=== PATIENT | male | born 1975 | race Caucasian/White ===

== ENCOUNTER 2024-03-19 01:11 | Day surgery (SDC) | payer BC, SELFPAY ==
[2024-03-11 09:50] VITALS: BMI 35.9
--- NOTE | 2024-03-11 10:15 | PC.NURSE ---
pat call done and prep instructions emailed per pt request.
[2024-03-19 11:23] VITALS: BP 142/84; PULSE 85; RESP 17; TEMP 36.2; O2SAT 100; BMI 35.2
[2024-03-19] MEDS: LACTATED RINGERS 1,000 ML 150 ML IV CONT (11:36)
--- NOTE | 2024-03-19 12:04 | WPDANESEPPF ---
Anes - Initial Pre Proc Eval Procedure: Operation Date: 03/19/24 12:30 Proposed Procedures p Esophagogastroduodenoscopy&Screen Colon - Paco Cortés MD Date/Time: 03/19/24 12:04 Surgeon: Paco Cortés MD Pre Op Diagnosis: screening colon, epigastric pain Patient Data Age: 48 Gender: M Height: 1.7 m Weight: 101.9 kg Last Vital Signs Temp 36.2 C L 03/19/24 11:23 Pulse 85 03/19/24 11:23 Resp 17 03/19/24 11:23 BP 142/84 H 03/19/24 11:23 Pulse Ox 100 03/19/24 11:23 O2 Del Method Room Air 03/19/24 11:23 Allergies Allergy/AdvReac Type Severity Reaction Status Date / Time Sulfa (Sulfonamide Allergy Mild Hives Verified 03/19/24 11:22 Antibiotics) Home Medications Medication Instructions Recorded Confirmed Type atenolol 50 mg tablet 50 mg PO DAILY 02/22/24 03/19/24 History pantoprazole 40 mg tablet,delayed 40 mg PO QAM 02/22/24 03/19/24 History release Patient hx anesthesia problems: none Family hx anesthesia problems: none Results Review: All pre-operative results and documents have been reviewed as part of the pre-operative evaluation. [facility] Past Medical History Medical History (Updated 03/19/24 @ 12:04 by Stone Javier CRNA) Encounter for screening colonoscopy Epigastric pain Hypertension Surgical History Surgical History History of bilateral carpal tunnel release Family History Family History Grandparent Carcinoma of colon Other Hypertension Social History Social History Smoking status: Never smoker Alcohol intake: current Alcohol use details: 1-4 week Substance use: never Substance use type: does not use Living arrangements: with family Spiritual care concerns: No Anes - Eval Final PreProcedure Day of Procedure 03/19/24 12:04 Patient weight: obese Heart: regular rate and rhythm Lungs: clear to auscultation Airway: Mallampati scale class II Neurological: alert and oriented Last oral intake: >/= 8 hours ASA classification: III Emergent: no Anesthetic plan: proceed Anesthesia type and monitoring: general GIVS Results Review: All pre-operative results and documents have been reviewed as part of the pre-operative evaluation. Informed Consent: The patient's anesthetic plan and its attendant risks and benefits were discussed with the patient/family/POA. Questions were solicited and answers provided to the satisfaction of the patient/family/POA.
--- NOTE | 2024-03-19 12:05 | WPDHPUPDATE1 ---
History and Physical Update Update Date/Time: 03/19/24 12:05 History and Physical has been reviewed, including an updated exam of the patient. There are NO changes in the patient's condition. Risks, benefits, and alternatives have been discussed and questions answered. Patient agrees to proceed with procedure.
--- NOTE | 2024-03-19 12:22 | SUR.OPER ---
EGD end 1222 Colonoscopy start 1227
[2024-03-19 12:39] VITALS: BP 107/58; PULSE 76; RESP 24; O2SAT 95
[2024-03-19 12:49] VITALS: BP 110/80; PULSE 75; RESP 16; O2SAT 95
[2024-03-19 12:59] VITALS: BP 117/78; PULSE 74; RESP 20; O2SAT 97
== END 2024-03-19 13:15 | disposition home or self-care (01) ==
PROVIDERS: PCP Physician Assistant; Referring Provider Nurse Practitioner Family; Visit Provider Internal Medicine Gastroenterology
PROC: 0DJ08ZZ Inspection of Upper Intestinal Tract, Via Natural or Artificial Opening Endoscopic (ICD-10-PCS; CPT 43235; principal; 2024-03-19 12:30)
DX: Z12.11 Encounter for screening for malignant neoplasm of colon (principal); D12.2 Benign neoplasm of ascending colon; K62.1 Rectal polyp; K29.50 Unspecified chronic gastritis without bleeding; I10 Essential (primary) hypertension; E66.9 Obesity, unspecified; Z68.35 Body mass index [BMI] 35.0-35.9, adult
CPT/HCPCS: 45385; 43239; 88305; J2704; J7120

== ENCOUNTER 2024-04-28 08:54 | Outpatient (CLI) | payer BC, SELFPAY ==
--- NOTE | ~2024-04-28 | US_ITS ---
COMPLETE ABDOMINAL ULTRASOUND Ordering provider: BLANQUITA Delgado History: . R10.13 - Epigastric pain . Comparison: None. FINDINGS: LIVER: Normal size and increased echotexture. Measures 16.2 cm. No focal hepatic lesions or perihepat ic fluid collections are identified. Normal flow of the portal vein. Portal vein measures 0.9 cm. GALLBLADDER: Cholelithiasis No evidence for sludge, gallbladder wall thickening or pericholecystic fl uid collections. Gallbladder wall measures 1.3 mm. A negative sonographic Mckeon's sign was noted. BILIARY DUCTS: No evidence for intra or extrahepatic biliary dilation. Common bile duct measures 2.7 mm in diameter which is within normal limits. PANCREAS: Partially visualized. SPLEEN: Normal size, echotexture and contour and measures 12.7X 4.5X 5 cm in length. KIDNEYS: Right measures 11.1X 5.4X 6 cm in length and the left 11.1X 5.5X 5.4 cm in length. There is no evidence for hydronephrosis, solid renal mass, renal calculi or perinephric fluid collections. No renal cysts. Bladder wall measures 1.7 mm. UPPER ABDOMINAL AORTA: Normal in caliber. Proximal measures 2.6 cm. Made measures 1.9 cm. Distal measures 1.5 cm. IVC: Patent. FREE FLUID: None. IMPRESSION: Cholelithiasis. Fat infiltration of the liver. Otherwise, normal Complete ultrasound of the abdomen. Reviewed, dictated and finalized at location A. O STATION MANAGER IMPRESSION: Cholelithiasis. Fat infiltration of the liver. Otherwise, normal Complete ultra sound of the abdomen.
--- OUTSIDE RECORDS SUMMARY | 2024-05-05 23:28 | XMS_ITS | Continuity of Care Document ---
Author [facility] Address [address] [place] [address] Care Team Providers Care Sifting Operator Name Role Phone LYLA MORRISON Primary Care Provider [phone] Assessment No assessment recorded. Plan of Treatment Reminders Order Date Submit Date Provider Last Modified By Organization Details Last Modified Time Details Appointments None recorded. Lab None recorded. Referral None recorded. Procedures None recorded. Surgeries None recorded. Imaging None recorded. Medication Orders pantoprazol e 40 mg tablet,nola yed release 2023 024 [facility] [address] [place], [address], 11:57:31 Patient TargetsNo targets recorded. Patient Instructions Encounter Date Encounter Id Patient Instructions Last Modified By Organization Details Last Modified Time 04/07/2024 [id number] A healthy lifestyle: care instructions [email or web address] Not available 04/07/2024 11:57:50 Reason for Referral None Reported. Results Created Date Observation Date Name Description Value Unit Range Abnormal Flag Note LastModifiedBy Organization Detail LastModifiedTime 04/28/20 24 04/28/2024 US, abdom en, compl ete No observ ation record ed. [address], [place], [address], 04/28/2024 11:43:28 Result Notes None recorded. Medical Equipment None Reported. Allergies Allergen ID Allergen Name Allergen Category Reaction Reaction Severity Criticality Documentation Date Start Date Code Code System Note Provider Name and Address Organization Details Recorded Time [id number] Substance with sulfonami de structure and antibacte rial mechanism of action (substanc e) medicatio n hives Not available Not available 12/28/2023 [id number] SNOMED [place], [place] - [place] 4 15:51:53 Medications Name Sig Start Date Stop Date Status Note LastModified by Organization Details LastModified Time ondansetron HCl 4 mg tablet 12/27 completed Not Available Not Available Not Available acetaminophen 300 mg-codeine 30 mg tablet 12/27 completed Not Available Not Available Not Available meloxicam 7.5 mg tablet 12/27 completed Not Available Not Available Not Available pantoprazole 40 mg tablet,delaye d release Take 1 tablet every day by oral route for 90 days. 2023 active Not Available Not Available Not Avai lable atenolol 50 mg tablet TAKE 1 TABLET BY MOUTH ONCE DAILY FOR 90 DAYS active Not Available Not Available No t Available Vitals Date Recorded Body height Body mass index (BMI) Body weight Oxygen saturation Oxygen saturation in Arterial blood by Pulse oximetry Heart rate Systolic blood pressure Diastolic blood pressure Provider Name and Address Organization Details Last Updated DateTime 173.99 cm 34.3 kg/m2 280592. 05 g 98 % 98 % 94 /min 121 mm[Hg] 85 mm[Hg] Yovana Hendrickson [place] - [facility] 4 11:41:48 Social History Question Answer Notes LastModified by Organizat ion Details LastModified Time Tobacco Smoking Status Never Smoker REAL [place], [place] - [facility] 12/28/2023 15:52:57 What Is Your Level Of Alcohol Consumption? Occasional Information not available 12/28/2023 What Is Your Level Of Caffeine Consumption? Moderate Information not available 12/28/2023 Are You Currently Employed? Yes Information not available 12/28/2023 What Type Of Diet Are You Following? REGULAR Information not available 12/28/2023 What Is Your Occupation? W[employer] Information not available 12/28/2023 What Was The Date Of Your Most Recent Tobacco Screening? 04/07/2024 [email or web address] Information not available 04/07/2024 What Is Your Relationship Status? Information not available 12/28/2023 Do You Feel Stressed (tense, Restless, Nervous, Or Anxious, Or Unable To Sleep At Night)? [id number] Information not available 12/28/2023 Do You Use Any Illicit Or Recreational Drugs? No Information not available 12/28/2023 Has Tobacco Cessation Counseling Been Provided? No Information not available 12/28/2023 Do You Or Have You Ever Used Any Other Forms Of Tobacco Or Nicotine? No Information not available 12/28/2023 Sex: Unknown Functional Status Question Answer Note LastModified by Organization D etails LastModified Time Are you able to care for yourself? Yes Information n ot available 12/28/2023 What is your exercise level? None [email or web address] Information not available 01/29/2024 Mental Status None recorded. Family History Relationship Description Onset Age of this Age Resolved Age Notes LastModified by Organization Details LastModified Time Father No current problems or disability [email or web address] Not available 12/27 15:52:27 Mother No current problems or disability [email or web address] Not available 12/27 15:52:27 Medical History Condition Response Coronary Artery Disease N Other N High Blood Pressure N Atrial Fibrillation N Thyroid Problems N Kidney or Bladder Problems N GI Problems N Depression N COPD N Blood Clots N Have you had a mammogram in the last yea r? N Skin Problems N Eating Disorder N Anemia N Heart Attack ([place]) N Anxiety Disorder N Diabetes N Muscle, Joint, or Bone Problems N Arthritis N Seizures/Epilepsy N Have you had a colonoscopy in the last 1 0 years? N Acid Reflux (GERD) N Cancer N Stroke N Asthma N Allergies N Have you had a PSA blood test in the las t year? N ADHD N Substance Abuse N High Cholesterol N Hepatitis N Liver Disease N Schizophrenia N Headaches N Heart Failure N Osteoporosis N Past Encounters Encounter ID Performer Location Encounter Start Date Encounter Closed Date Diagnosis/Indication Diagnosis SNOMED-CT Code Diagnosis ICD10 Code [id number] Lyla Morrison PA-C [facility] [address] [place] [address] 04/07/2024 11:21:38 04/09/2024 15:09:21 Epigastric pain 83022191 R10.13 Overweight 352540985 E66 .3 Health Concerns Section Related Observation LastModified by Organization Detai ls LastModified Time None Recorded Concern Status LastModified by Organization Details LastModified Time None Recorded Payers Encounter Date Sequence Insurance Name Policy Number Policy Infante Covered Member ID Infante Member ID Guarantor Name 04/07/2024 1 [facility] [id number] Anthony Downs [id number] Anthony Downs Notes Date Note Type Note Provider Name and Address Organization Details Recorded Time 04/07/2024 text/html abdominal pain starts upper mid then radiates through entire stomach...happens mostly at night lasts about 30 minutes goes away but lingers a little...had an upper found no ulcer or cancer..saw [facility]...was rxd pantropazole Lyla Morrison PA-C Attn: [employer] [place], [address], [facility] - [facility] 04/07/2024 11:58:23
--- OUTSIDE RECORDS SUMMARY | 2024-05-05 23:28 | XMS_ITS | Encounter Summary ---
Author Organization [facility] Address [address] [place] [address]. [place] [address] [place] [address] Care Team Providers Care [facility] Name Role Phone None, Provider MD Primary Care Provider Unavaila ble Reason for Referral * Imaging (Urgent) - New Request Specialty Diagnoses / Procedures Referred By Contac t Referred To Contact RADIOLOGY Procedures CT ABD+PEL W CON Darren Baker MD [address] [place] [address] Phone: tel: fax: Referral ID Status Reason Start Date Expiration Date V isits Requested Visits Authorized [id number] New Request 08/26/2023 08/25/2024 1 1 Reason for Visit * Reason Comments Abdominal Pain Encounter Details Date Type Department Care Team (Late st Contact Info) Description 08/26/2023 2:32 AM CDT - 08/26/2023 4:10 AM CDT Emergency [place] [facility] [place] [address] Darren Baker MD [address] [place], [place] [id number] Abdominal Pain Discharge Disposition: Home or Self Care (Routine Discharge) Social History Tobacco Use Types Packs/Day Years Used Date Smoking Tobacco: Never Assessed Sex and Gender Information Value Date Recorded Sex Assigned at Not on file Legal Sex Male 2:20 AM CDT Gender Identity Not on file Sexual Orientation Not on file documented as of this encounter Last Filed Vital Signs Vital Sign Reading Time Taken Comments Blood Pressure 148/100 08/26/2023 2:32 AM CDT Pulse 85 08/26/2023 2:32 AM CDT Temperature 36.2 ??C (97.2 ??F) 08/26/2023 2:32 AM CD T Respiratory Rate 20 08/26/2023 2:32 AM CDT Oxygen Saturation 99% 08/26/2023 2:32 AM CDT Inhaled Oxygen Concentration - - Weight 102.2 kg (225 lb 6.4 oz) 08/26/2023 2:32 AM CDT Height 172.7 cm (5' 8 ) 08/26/2023 2:32 AM CDT Body Mass Index 34.27 08/26/2023 2:32 AM CDT documented in this encounter Discharge Instructions * Discharge Instructions* Darren Baker MD - 08/26/2023 3:48 AM CDT Please start taking some [id number] laxatives. Also please go on a clear liquid diet for the next 24 to 48 hours. And please follow-up with a glove factory sewer. DISCHARGE INSTRUCTIONS Even though you have been discharged from the Emergency Department, there are several things that you should do to ensure that you receive proper care: 1. DO READ your discharge instructions as these contain important information concerning your medical care. 2. If medication has been prescribed for your condition, fill the prescription as soon as possible and follow the directions on the medication. 3. RETURN AT ONCE TO THE EMERGENCY DEPARTMENT if you have any problems or concerns. These include but are not limited to fever, worsening pain(belly, chest, head, etc...), worsening shortness of breath, uncontrollable bleeding, inability to tolerate food and water, or any condition that makes you question your well-being. Also, if your symptoms do not improve in the next 12-24 hours, return to the ER or seek medical care immediately. 4. Be sure to follow up with your regular physician or specialist as instructed at discharge as this is the best way to ensure that you receive the very best of care. If you do not have a primary care physician, please contact a physician group and make an appointment. 5. Please visit [employer] for coupons regarding your prescriptions. It is a free service for you to use and can help reduce the cost of your medication. We would like to thank you for coming today and our hope is that we served you and your family wellduring your stay. You will get a satisfaction survey and I sincerely hope that we met or exceeded your expectations. * Attachments The following attachments cannot be sent through Care Everywhere. * Constipation Discharge Instructions, Adult (Estonian) * Viral Gastroenteritis Discharge Instructions, Adult (Estonian) * Clear Liquid Diet (Estonian) documented in this encounter ED Notes * Georgie Gaines RN - 08/26/2023 2:54 AM CDT On IV insertion patient patient has a 30 second episode of syncope. * Darren Baker MD - 08/26/2023 2:40 AM CDT Chief Complaint Chief Complaint Patient presents with Abdominal Pain History of Present Illness Patient is a 48-year-old who presents with epigastric abdominal pain. Patient states that he cannotdescribe the pain. Patient states that he is not sure if anything makes it better or worse. Denies any fevers or chills. Denies any chest pain or shortness of breath Medical History ALLERGIES: Review of patient's allergies indicates: Allergen Reactions Sulfa Antibiotics Unknown MEDICATIONS: Prior to Admission medications Not on File PAST MEDICAL HISTORY: Past Medical History: Diagnosis Date High cholesterol PAST SURGICAL HISTORY: History reviewed. No pertinent surgical history. FAMILY HISTORY: No family history on file. SOCIAL HISTORY: Review of Systems Review of Systems All other systems reviewed and are negative. Physical Exam Filed Vitals: 08/26/23 0232 BP: (!) 148/100 Pulse: 85 Resp: 20 Temp: 97.2 ??F (36.2 ??C) TempSrc: Tympanic SpO2: 99% Weight: 102.2 kg (225 lb 6.4 oz) Height: 1.727 m (5' 8 ) Physical Exam Vitals and nursing note reviewed. Constitutional: General: He is not in acute distress. Appearance: He is well-developed. He is not ill-appearing. HENT: Head: Normocephalic and atraumatic. Nose: Nose normal. Eyes: Conjunctiva/sclera: Conjunctivae normal. Pupils: Pupils are equal, round, and reactive to light. Cardiovascular: Rate and Rhythm: Normal rate and regular rhythm. Heart sounds: Normal heart sounds. Pulmonary: Effort: Pulmonary effort is normal. Breath sounds: Normal breath sounds. Abdominal: General: Abdomen is flat. Bowel sounds are normal. There is no distension. Palpations: Abdomen is soft. Tenderness: There is no abdominal tenderness. Musculoskeletal: General: Normal range of motion. Cervical back: Normal range of motion and neck supple. Skin: General: Skin is warm and dry. Neurological: General: No focal deficit present. Mental Status: He is alert and oriented to person, place, and time. Mental status is at baseline. Cranial Nerves: No cranial nerve deficit. Psychiatric: Mood and Affect: Mood normal. Diagnostic Studies / Procedures ELECTROCARDIOGRAMS: No results found for this visit on 08/26/23. LABORATORY STUDIES: Results for orders placed or performed during the hospital encounter of 08/26/23 CBC W/DIFF AUTOMATED Result Value Ref Range WBC 10.24 4.00 - 10.80 x10'3/uL RBC 5.42 4.50 - 6.10 x10'6/uL HGB 16.3 13.0 - 18.0 G/DL HCT 48.8 37.0 - 52.0 % MCV 90.0 78.0 - 100.0 FL MCH 30.1 27.0 - 31.0 PG MCHC 33.4 33.0 - 36.0 G/DL RDW 12.5 11.5 - 14.5 % PLT 139 (L) 150 - 350 x10'3/uL MPV 11.7 (H) 7.4 - 10.4 FL CBC COMMENT NORMAL REFERENCE RANGE NOT ESTABLISHED FOR THE PROPORTIONAL LEUKOCYTE DIFFERENTIAL. NEUTROPHILS 62.6 % LYMPHOCYTES 26.1 % MONOCYTES 8.8 % EOSINOPHILS 2.1 % BASOPHILS 0.3 % IMMATURE GRANS 0.1 % NRBC 0.0 % ABS. NEUTROPHILS 6.41 1.60 - 8.30 x10'3/uL ABS. LYMPHOCYTES 2.67 0.80 - 4.70 x10'3/uL ABS. MONOCYTES 0.90 0.00 - 1.50 x10'3/uL ABS. EOSINOPHILS 0.22 0.00 - 0.40 x10'3/uL ABS. BASOPHILS 0.03 0.00 - 0.20 x10'3/uL ABS. IMMATURE GRANULOCYTES 0.01 0.00 - 0.03 x10'3/uL ABS. NUCLEATED RBC'S 0.00 0.00 x10'3/uL PLT MORPH. PLATELET COUNT MAY BE ARTIFACTUALLY LOW DUE TO PLATELET CLUMPING RBC MORPHOLOGY NORMAL COMPREHENSIVE METABOLIC PANEL Result Value Ref Range SODIUM S/P/B 138 136 - 145 MMOL/L POTASSIUM S/P/B 3.8 3.5 - 5.1 MMOL/L CHLORIDE S/P/B 98 98 - 107 MMOL/L CO2 30.0 21.0 - 32.0 MMOL/L GLUCOSE 110 (H) 70 - 99 MG/DL BUN 12 6 - 24 MG/DL CREATININE S/P/B 1.16 0.70 - 1.30 MG/DL CALCIUM S/P/B 9.4 8.4 - 10.5 MG/DL BILIRUBIN TOTAL S/P/B 0.3 0.2 - 1.0 MG/DL ALKALINE PHOSPHATASE S/P/B 69 45 - 115 U/L AST 24 15 - 37 U/L ALT 44 16 - 63 U/L TOTAL PROTEIN S/P/B 8.1 6.4 - 8.2 G/DL ALBUMIN S/P/B 4.1 3.4 - 5.0 G/DL ANION GAP 10.0 5.0 - 15.0 MMOL/L OSMOLALITY (CALC) 286 MOSM/KG GFR ESTIMATE 78 (L) >89 ML/MIN/1.73 M2 GFR NOTES GFR REFERENCES: TROPONIN, QUANT Result Value Ref Range TROPONIN I HIGH SENSITIVITY 4 0 - 76 ng/L LIPASE Result Value Ref Range LIPASE 90 (H) 16 - 77 UNITS/L IMAGING STUDIES CT ABD+PEL W CON Final Result by User, [id number] (08/25 341) EXAMINATION: CT Abdomen and Pelvis with intravenous contrast, axial images with 2D coronal and sagittal reconstruction. 93 mL Isovue-370 was administered intravenously. INDICATION: Generalized abdominal pain, acute, nonlocalized. COMPARISON: None. FINDINGS: The included lower lungs are clear. No pleural or pericardial effusions. Heart size is normal. Liver, spleen, gallbladder, pancreas, bilateral adrenals, and bilateral kidneys appear unremarkable. Bladder is not well distended, limiting evaluation for wall thickening. Prostate is normal in size. Moderate stool burden throughout the colon suggesting constipation. Appendix is not well seen, but no findings of appendicitis are seen. Slight prominence of fluid in the small bowel with perhaps mild mucosal hyperenhancement of small bowel loops, which may represent a very mild nonspecific enteritis in the appropriate clinical setting. No abnormal bowel dilatation, significant bowel wall thickening, or bowel obstruction. Tiny miniscule insignificant fat containing ventral periumbilical hernia. No ascites or adenopathy. Aorta is age-appropriate without aneurysm. No acute osseous abnormality. IMPRESSION: 1. Moderate stool in the colon suggesting constipation. 2. Slight fluid distention and perhaps mild mucosal hyperenhancement and small bowel suggesting a mild nonspecific enteritis. No significant bowel wall thickening or bowel obstruction. 3. Appendix is not seen, but no findings of appendicitis are seen. 4. Bladder is incompletely distended, limiting evaluation, with no other significant abnormality of the solid organs of the abdomen or pelvis. This CT exam was performed using one or more of the following dose reduction techniques: automated exposure control, adjustment of the mA and/or kV according to patient size, and/or use of iterative reconstruction technique. Referred By: Interpreted By: Jessica Neff MD, 08/26/2023 3:35 AM ED Course / Medical Decision Making Medical Decision Making Patient is a 8-year-old who presents with abdominal pain. Labs are unremarkable. CT shows constipation and enteritis. On reassessment patient is resting comfortably. Will discharge home to follow-up with PMD. Amount and/or Complexity of Data Reviewed Labs: ordered. Decision-making details documented in ED Course. Radiology: ordered and independent interpretation performed. Decision-making details documented in ED Course. Clinical Impression Constipation (Primary) Enteritis Disposition: Discharge Darren Baker MD 08/26/23 0519 * Georgie Gaines RN - 08/26/2023 2:36 AM CDT Patient presents to the ER POV with complaints of upper abdominal cramps that he rates an 8 out of 10. The patient denies nausea, vomiting, and diarrhea. documented in this encounter Plan of Treatment Not on file documented as of this encounter Procedures Procedure Name Priority Date/Time Associated Diagnosis Comments CT ABD+PEL W CON STAT 08/26/2023 3:35 AM CDT COMPREHENSIVE METABOLIC PANEL STAT 08/26/2023 2:40 AM CDT CBC W/DIFF AUTOMATED STAT 08/26/2023 2:40 AM CDT TROPONIN, QUANT STAT 08/26/2023 2:40 AM CDT LIPASE STAT 08/26/2023 2:40 AM CDT documented in this encounter Results * CT ABD+PEL W CON (08/26/2023 3:35 AM CDT) Anatomical Region Laterality Modality Abdomen Computed Tomogra phy 08/26/2023 3:35 AM CDT Impressions 08/26/2023 3:41 AM CDT IMPRESSION: 1. ??Moderate stool in the colon suggesting constipation. 2. ??Slight fluid distention and perhaps mild mucosal hyperenhancement and small bowel suggesting a mild nonspecific enteritis. ??No significant bowel wall thickening or bowel obstruction. 3. ??Appendix is not seen, but no findings of appendicitis are seen. 4. ??Bladder is incompletely distended, limiting evaluation, with no other significant abnormality of the solid organs of the abdomen or pelvis. This CT exam was performed using one or more of the following dose reduction techniques: ??automated exposure control, adjustment of the mA and/or kV according to patient size, and/or use of iterative reconstruction technique. Referred By: ?? Interpreted By: Jessica Neff MD, 08/26/2023 3:35 AM Narrative 08/26/2023 3:41 AM CDT EXAMINATION: CT Abdomen and Pelvis with intravenous contrast, axial images with 2D coronal and sagittal reconstruction. ??93 mL Isovue-370 was administered intravenously. INDICATION: Generalized abdominal pain, acute, nonlocalized. COMPARISON: None. FINDINGS: The included lower lungs are clear. No pleural or pericardial effusions. Heart size is normal. ??Liver, spleen, gallbladder, pancreas, bilateral adrenals, and bilateral kidneys appear unremarkable. ??Bladder is not well distended, limiting evaluation for wall thickening. ??Prostate is normal in size. Moderate stool burden throughout the colon suggesting constipation. ??Appendix is not well seen, but no findings of appendicitis are seen. ??Slight prominence of fluid in the small bowel with perhaps mild mucosal hyperenhancement of small bowel loops, which may represent a very mild nonspecific enteritis in the appropriate clinical setting. ??No abnormal bowel dilatation, significant bowel wall thickening, or bowel obstruction. ??Tiny miniscule insignificant fat containing ventral periumbilical hernia. ??No ascites or adenopathy. ??Aorta is age-appropriate without aneurysm. ??No acute osseous abnormality. Procedure Note Jessica Neff MD - 08/26/2023 EXAMINATION: CT Abdomen and Pelvis with intravenous contrast, axial imageswith 2D coronal and sagittal reconstruction. 93 mL Isovue-370 wasadministered intravenously. INDICATION: Generalized abdominal pain, acute, nonlocalized. COMPARISON: None. FINDINGS: The included lower lungs are clear. No pleural or pericardialeffusions. Heart size is normal. Liver, spleen, gallbladder, pancreas,bilateral adrenals, and bilateral kidneys appear unremarkable. Bladder isnot well distended, limiting evaluation for wall thickening. Prostate isnormal in size. Moderate stool burden throughout the colon suggesting constipation.Appendix is not well seen, but no findings of appendicitis are seen.Slight prominence of fluid in the small bowel with perhaps mild mucosalhyperenhancement of small bowel loops, which may represent a very mildnonspecific enteritis in the appropriate clinical setting. No abnormalbowel dilatation, significant bowel wall thickening, or bowel obstruction.Tiny miniscule insignificant fat containing ventral periumbilical hernia.No ascites or adenopathy. Aorta is age-appropriate without aneurysm. Noacute osseous abnormality. IMPRESSION: 1. Moderate stool in the colon suggesting constipation. 2. Slight fluid distention and perhaps mild mucosal hyperenhancement andsmall bowel suggesting a mild nonspecific enteritis. No significant bowelwall thickening or bowel obstruction. 3. Appendix is not seen, but no findings of appendicitis are seen. 4. Bladder is incompletely distended, limiting evaluation, with no othersignificant abnormality of the solid organs of the abdomen or pelvis. This CT exam was performed using one or more of the following dosereduction techniques: automated exposure control, adjustment of the mAand/or kV according to patient size, and/or use of iterativereconstruction technique. Referred By: Interpreted By: Jessica Neff MD, 08/26/2023 3:35 AM us Darren Baker MD CT Final Result * (ABNORMAL) LIPASE (08/26/2023 2:40 AM CDT) Pathologist [facility] LIPASE 90(H) 16 - 77 UNITS/L 08/26/2023 3:30 AM CDT [facility] 08/26/2023 2:40 AM CDT us Darren Baker MD LABORATORY Final Result Performing Organization Address City/[facility]/ZIP Co de Phone Number [facility] [address] [place] [address], * TROPONIN, QUANT (08/26/2023 2:40 AM CDT) Pathologist [facility] TROPONIN I HIGH SENSITIVITY 4 0 - 76 ng/L 08/26/2023 3:30 AM CDT [facility] 08/26/2023 2:40 AM CDT us Darren Baker MD LABORATORY Final Result Performing Organization Address [facility] Co de Phone Number [facility] [address] [place] [address], * (ABNORMAL) COMPREHENSIVE METABOLIC PANEL (08/26/2023 2:40 AM CDT) Pathologist [facility] SODIUM S/P/B 138 136 - 145 MMOL/L 08/26/2023 3:30 AM CDT [facility] POTASSIUM S/P/B 3.8 3.5 - 5.1 MMOL/L 08/26/2023 3:30 AM T [facility] Comment:SLIGHT HEMOLYSIS, RE SULT MAY BE AFFECTED. CHLORIDE S/P/B 98 98 - 107 MMOL/L 08/26/2023 3:30 AM CDT [facility] CO2 30.0 21.0 - 32.0 MMOL/L 08/26/2023 3:30 AM CDT [facility] GLUCOSE 110(H) 70 - 99 MG/DL 08/26/2023 3:30 AM T [facility] Comment: FASTING GLUCOSE 100 TO 125 MG/DL IS CONSISTENT WITH IMPAIRED FASTING GLUCOSE. FASTING GLUCOSE >125 MG/DL IS CONSISTENT WITH DIABETES. RANDOM GLUCOSE >200 MG/DL WITH HYPERGLYCEMIC SYMPTOMS IS CONSISTENT WITH DIABETES. PER ADA GUIDELINES BUN 12 6 - 24 MG/DL 08/26/2023 3:30 AM CDT [facility] CREATININE S/P/B 1.16 0.70 - 1.30 MG/DL 08/26/2023 3:30 AM CDT [facility] CALCIUM S/P/B 9.4 8.4 - 10.5 MG/DL 08/26/2023 3:30 AM CDT [facility] BILIRUBIN TOTAL S/P/B 0.3 0.2 - 1.0 MG/DL 08/26/2023 3:30 AM T [facility] Comment: THIS ASSAY IS NOT RECOMMENDED FOR PATIENTS UNDERGOING TREATMENT WITH ELTROMBOPAG DUE TO THE POTENTIAL FOR FALSELY ELEVATED RESULTS. ALKALINE PHOSPHATASE S/P/B 69 45 - 115 U/L 08/26/2023 3:30 AM CDT [facility] AST 24 15 - 37 U/L 08/26/2023 3:30 AM T [facility] ALT 44 16 - 63 U/L 08/26/2023 3:30 AM CDT [facility] TOTAL PROTEIN S/P/B 8.1 6.4 - 8.2 G/DL 08/26/2023 3:30 AM CDT [facility] ALBUMIN S/P/B 4.1 3.4 - 5.0 G/DL 08/26/2023 3:30 AM CDT [facility] ANION GAP 10.0 5.0 - 15.0 MMOL/L 08/26/2023 3:30 AM CDT [facility] OSMOLALITY (CALC) 286 MOSM/KG 024 3:30 AM CDT [facility] Comment:REFERENCE RANGE NOT ESTABLISHED GFR ESTIMATE 78(L) >89 ML/MIN/1. 73 M2 08/26/2023 3:30 AM CDT [facility] GFR NOTES GFR REFERENCE S: 08/26/2023 3:30 AM CDT [facility] Comment: THE ESTIMATED GFR IS CALCULATED USING THE 2020 CKD-EPI EQUATION. THE FOLLOWING CATEGORIES FOR GRADING RENAL FUNCTION ARE RECOMMENDED BY THE INTERNATIONAL SOCIETY OF NEPHROLOGY (KDIGO 2012 CLINICAL PRACTICE GUIDELINE). G1,NORMAL OR HIGH: >89 ml/min/1.73 m2 G2,MILDLY DECREASED: 60-89 ml/min/1.73 m2 G3A,MILDLY TO MODERATELY DECREASED: 45-59 ml/min/1.73 m2 G3B,MODERATELY TO SEVERELY DECREASED: 30-44 ml/min/1.73 m2 G4,SEVERELY DECREASED: 15-29 ml/min/1.73 m2 G5,KIDNEY FAILURE: <15 ml/min/1.73 m2 08/26/2023 2:40 AM CDT Darren Baker MD LABORATORY Final Result [facility] [address] [place] [address], * (ABNORMAL) CBC W/DIFF AUTOMATED (08/26/2023 2:40 AM CDT) WBC 10.24 4.00 - 10.80 x10'3/uL 08/26/2023 3:09 AM CDT [facility] RBC 5.42 4.50 - 6.10 x10'6/uL 08/26/2023 3:09 AM CDT [facility] HGB 16.3 13.0 - 18.0 G/DL 08/26/2023 3:09 AM CDT [facility] HCT 48.8 37.0 - 52.0 % 08/26/2023 3:09 AM CDT [facility] MCV 90.0 78.0 - 100.0 FL 08/26/2023 3:09 AM CDT [facility] MCH 30.1 27.0 - 31.0 PG 08/26/2023 3:09 AM CDT [facility] MCHC 33.4 33.0 - 36.0 G/DL 08/26/2023 3:09 AM CDT [facility] RDW 12.5 11.5 - 14.5 % 08/26/2023 3:09 AM CDT [facility] PLT 139(L) 150 - 350 x10'3/uL 08/26/2023 3:09 AM CDT [facility] MPV 11.7(H) 7.4 - 10.4 FL 08/26/2023 3:09 AM CDT [facility] CBC COMMENT NORMAL REFERENCE RANGE NOT ESTABLISHED FOR THE PROPORTIONAL LEUKOCYTE DIFFERENTIAL. 08/26/2023 3:09 AM CDT [facility] NEUTROPHILS % 62.6 % 08/26/2023 3:26 AM CDT [facility] LYMPHOCYTES % 26.1 % 08/26/2023 3:26 AM CDT [facility] MONOCYTES % 8.8 % 08/26/2023 3:26 AM CDT [facility] EOSINOPHILS % 2.1 % 08/26/2023 3:26 AM CDT [facility] BASOPHILS % 0.3 % 08/26/2023 3:26 AM CDT [facility] IMMATURE GRANS % 0.1 % 08/26/2023 3:26 AM CDT [facility] NRBC 0.0 % 08/26/2023 3:26 AM CDT [facility] ABS. NEUTROPHILS 6.41 1.60 - 8.30 x10'3/uL 08/26/2023 3:26 AM CDT [facility] ABS. LYMPHOCYTES 2.67 0.80 - 4.70 x10'3/uL 08/26/2023 3:26 AM CDT [facility] ABS. MONOCYTES 0.90 0.00 - 1.50 x10'3/uL 08/26/2023 3:26 AM CDT [facility] ABS. EOSINOPHILS 0.22 0.00 - 0.40 x10'3/uL 08/26/2023 3:26 AM CDT [facility] ABS. BASOPHILS 0.03 0.00 - 0.20 x10'3/uL 08/26/2023 3:26 AM CDT [facility] ABS. IMMATURE GRANULOCYTES 0.01 0.00 - 0.03 x10'3/uL 08/26/2023 3:26 AM CDT [facility] ABS. NUCLEATED RBC'S 0.00 0.00 x10'3/uL 08/26/2023 3:26 AM CDT [facility] PLT MORPH. PLATELET COUNT MAY BE ARTIFACTUALLY LOW DUE TO PLATELET CLUMPING 08/26/2023 3:26 AM CDT [facility] RBC MORPHOLOGY NORMAL 08/26/2023 3:26 AM CDT [facility] 08/26/2023 2:40 AM CDT Darren Baker MD LABORATORY Final Result Performing Organization Address City/State/[facility] Co de Phone Number [facility] [address] [place] [address], documented in this encounter Visit Diagnoses Diagnosis Constipation- Primary Unspecified constipation Enteritis Other and unspecified noninfectious gastroenteritis and colitis documented in this encounter Administered Medications Inactive Administered Medications - up to 3 most recent administrations Medication Order MAR Action Action Date Dose Rate Site famotidine (PF) (PEPCID) injection 20 mg 20 mg, Intravenous, Once, 1 dose, On 08/26/23 at 0245, IV Push over 2 minutes Given 08/26/2023 3:53 AM CDT 20 mg iopamidol (ISOVUE-370) 76 % injection 93 mL 93 mL, Intravenous, IMG once as needed, Contrast, 1 dose, Starting on 08/26/23 at 0335, Until 08/26/23 at 0335 Given 08/26/2023 3:35 AM CDT 93 mLs Le ft Arm sodium chloride 0.9% bolus infusion 1,000 mL 1,000 mL, Intravenous, Administer over 60 Minutes, Once, 1 dose, On 08/26/23 at 0245 New Bag 08/26/2023 3:55 AM CDT 1,000 mLs documented in this encounter Active and Recently Administered Medications Times are shown in CDT. Scheduled Medication Order 08/24/2023 08/25/2023 08/26/2023 famotidine (PF) (PEPCID) injection 20 mg (COMPLETED) 20 mg, Intravenous, Once, 1 dose, On 08/26/23 at 0245, IV Push over 2 minutes 0353 (Given - Provid er: Lili Harmon, QIANA) sodium chloride 0.9% bolus infusion 1,000 mL (COMPLETED) 1,000 mL, Intravenous, Administer over 60 Minutes, Once, 1 dose, On 08/26/23 at 0245 0355 (New Bag - Prov ider: Lili Harmon, QIANA)[id number] (Infusion Stop Time - Provider: Georgie Gaines, RN) PRN Medication Order 08/24/2023 08/25/2023 08/26/2023 iopamidol (ISOVUE-370) 76 % injection 93 mL (COMPLETED) 93 mL, Intravenous, IMG once as needed, Contrast, 1 dose, Starting on 08/26/23 at 0335, Until 08/26/23 at 0335 0335 (Given - Provid er: Colin Saldana, RTR) documented in this encounter Care Teams Wedding Planning Internship Relationship Specialty Start Date End Date None, Provider, PCP - General UNKNOWN PHYSICIAN SPECIALTY 08/26/23 documented as of this encounter
--- OUTSIDE RECORDS SUMMARY | 2024-05-05 23:28 | XMS_ITS | Encounter Summary ---
Author Organization [facility] Address [address] [place] [address]. [place], [place] [address] [place] [address] Care Team Providers Care Rn Ante Partum Name Role Phone None, Provider Primary Care Provider Unavaila ble Encounter Details Date Type Department Care Team (Latest Contact Info) Description 08/26/2023 Travel Social History Tobacco Use Types Packs/Day Years Used Date Smoking Tobacco: Never Assessed Sex and Gender Information Value Date Recorded Sex Assigned at Not on file Legal Sex Male 2:20 AM CDT Gender Identity Not on file Sexual Orientation Not on file documented as of this encounter Plan of Treatment Not on file documented as of this encounter Visit Diagnoses Not on filedocumented in this encounter Care Teams Rn Ante Partum Relationship Specialty Start Date End Date None, Provider, PCP - General UNKNOWN PHYSICIAN SPECIALTY 08/26/23 documented as of this encounter
--- OUTSIDE RECORDS SUMMARY | 2024-05-05 23:28 | XMS_ITS | Data Portability ---
Author Organization [facility] Address [address] [place] [address] Care Team Providers Care Datastage Developer Name Role Phone LYLA MORRISON Primary Care Provider Assessment No assessment recorded. Plan of Treatment Reminders Order Date Submit Date Provider Last Modified By Organization Details Last Modified Time Details Appointments None recorded. Lab CBC 2023 024 [email or web address] [facility], [address] [place] [address] [place], [address], 09:30:30 CMP, serum or plasma 2023 024 [email or web address] [facility], [address] [place] [address] [place], [address], 09:30:30 HbA1c (hemoglobi n A1c), blood 2023 024 [email or web address] [facility], [address] [place] [address] [place], [address], 4 09:30:30 lipid panel, serum 2023 024 ELLI [facility], [address] [facility] [address], [address], 10:26:41 Referral gastroente rologist referral 2023 024 [facility], [address], [address], [place], [address], 10:05:49 Procedures None recorded. Surgeries None recorded. Imaging None recorded. Medication Orders atenolol 50 mg tablet 2023 [facility] [place], [address], 16:18:06 pantoprazo le 40 mg tablet,del ayed release 2023 024 [facility] [address] [place], [address], 16:18:07 pantoprazo le 40 mg tablet,del ayed release 2023 [facility] [address] [place], [address], 11:57:31 Patient TargetsNo targets recorded. Patient Instructions Encounter Date Encounter Id Patient Instructions Last Modified By Organization Details Last Modified Time 12/28/2023 [id number] A healthy lifestyle: care instructions jnanney Not available 12/28/2023 16:18:00 learning about high blood pressure jnanney Not available 12/28/2023 16:18:00 01/11/2024 [id number] A healthy lifestyle: care instructions jnanney Not available 01/11/2024 17:07:17 learning about high blood pressure jnanney Not available 01/11/2024 17:06:11 01/29/2024 [id number] A healthy lifestyle: care instructions jnanney Not available 01/29/2024 16:13:02 04/07/2024 [id number] A healthy lifestyle: care instructions jnanney Not available 04/07/2024 11:57:50 Reason for Referral Photo Graphics Librarian Referral for Esophageal dysphagia Referring Physician: Lyla Morrison, Family Medicine, Encounter Date: 01/29/2024 Results Created Date Observation Date Name Description Value Unit Range Abnormal Flag Note LastModifiedBy Organization Detail LastModifiedTime 04/28/2004/28/2024 US, abdom en, compl ete No observ ation record ed. [email or web address] [facility] [address], [place], [address], 04/28/2024 11:43:28 Result Notes None recorded. Procedures Surgical History None recorded. Imaging Results Imaging Date Name Status LastModified by Organiz ation Details LastModified Time 04/28/2024 US, abdomen, complete completed [facility] [address], [place], [address], 04/28/2024 11:43:28 Procedure Notes None recorded. Medical Equipment None Reported. Allergies Allergen ID Allergen Name Allergen Category Reaction Reaction Severity Criticality Documentation Date Start Date Code Code System Note Provider Name and Address Organization Details Recorded Time 690873 Substance with sulfonami de structure and antibacte rial mechanism of action (substanc e) medicatio n hives Not available Not available 12/28/2023 82141 8003 SNOMED Cori Villanueva MA null, [place] - [facility] 15:51:53 Medications Name Sig Start Date Stop [...] No t Available Vitals Date Recorded Body weight Body mass index (BMI) Body height Oxygen saturation Oxygen saturation in Arterial blood by Pulse oximetry Heart rate Systolic blood pressure Diastolic blood pressure Provider Name and Address Organization Details Last Updated DateTime 490549. 91 g 33.1 kg/m2 173.99 cm 96 % 96 % 96 /min 134 mm[Hg] 90 mm[Hg] Cori Villanueva MA [place] - [facility] 4 15:55:40 Date Recorded Body height Body mass index (BMI) Body weight Oxygen saturation Oxygen saturation in Arterial blood by Pulse oximetry Heart rate Systolic blood pressure Diastolic blood pressure Provider Name and Address Organization Details Last Updated DateTime 4 173.99 cm 33.1 kg/m2 324034. 91 g 95 % 95 % 52 /min 110 mm[Hg] 78 mm[Hg] Cori Villanueva MA [facility] 4 16:53:19 Date Recorded Body height Body mass index (BMI) Body weight Oxygen saturation Oxygen saturation in Arterial blood by Pulse oximetry Heart rate Respiratory rate Systolic blood pressure Diastolic blood pressure Provider Name and Address Organization Details Last Updated DateTime 4 173.99 cm 34 kg/m2 291413. 03 g 97 % 97 % 68 /min 16 /min 130 mm[Hg] 84 mm[Hg] Jennie Acuña MA [facility] 4 15:49:54 Date Recorded Body height Body mass index (BMI) Body weight Oxygen saturation Oxygen saturation in Arterial blood by Pulse oximetry Heart rate Systolic blood pressure Diastolic blood pressure Provider Name and Address Organization Details Last Updated DateTime 4 173.99 cm 34.3 kg/m2 479142. 05 g 98 % 98 % 94 /min 121 mm[Hg] 85 mm[Hg] Yovana Hendrickson MA [facility] 4 11:41:48 Social History Question Answer Notes LastModified by Organizat ion Details LastModified Time Tobacco Smoking Status Never Smoker Cori Villanueva MA [facility] 12/28/2023 15:52:57 What Is Your Level Of Alcohol Consumption? Occasional Information not available 12/28/2023 What Is Your Level Of Caffeine Consumption? Moderate Information not available 12/28/2023 Are You Currently Employed? Yes Information not available 12/28/2023 What Type Of Diet Are You Following? 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 04/07/2024 [email or web address] Information not available 04/07/2024 What Is Your Relationship Status? Information not available 12/28/2023 Do You Feel Stressed (tense, Restless, Nervous, Or Anxious, Or Unable To Sleep At Night)? [id number] Information not available 12/28/2023 Do You Use [...] Eating Disorder N Anemia N Heart Attack (RI) N Diabetes N Anxiety Disorder N Muscle, Joint, or Bone Problems N Seizures/Epilepsy N Have you had a colonoscopy in the last 1 0 years? N Arthritis N Acid Reflux (GERD) N Cancer N Stroke N Asthma N Allergies N Have you had a PSA blood test in the las t year? N ADHD N Substance Abuse N High Cholesterol N Hepatitis N Liver Disease N Schizophrenia N Headaches N Osteoporosis N Heart Failure N Past Encounters Encounter ID Performer Location Encounter Start Date Encounter Closed Date Diagnosis/Indication Diagnosis SNOMED-CT Code Diagnosis ICD10 Code [id number] Lyla Morrison PA-C [facility] [address] [place] [address] 12/28/2023 15:23:19 12/31/2023 14:21:37 Burning epigastric pain 31226987 R10.13 Overweight 720090885 E66 .3 Essential hypertension 24485665 I10 [id number] Lyla Morrison PA-C [facility] [address] [place] [address] 01/11/2024 16:40:47 01/14/2024 08:06:18 Essential hypertension 35505201 I10 Gastroesop hageal reflux disease without esophagitis 501040125 K21.9 Overweight 208067893 E66 .3 [id number] Lyla Morrison PA-C [facility] [address] [place] [address] 01/29/2024 15:29:37 02/05/2024 14:31:28 Gastro-esophageal reflux disease with esophagitis 975381833 K21.00 Esophageal dysphagia 408 59549 R13.19 Overweight 975494217 E66 .3 [id number] Lyla Morrison PA-C [facility] [address] [place] [address] 04/07/2024 11:21:38 04/09/2024 15:09:21 Epigastric pain 53594178 R10.13 Overweight 192582993 E66 .3 Health Concerns Section Related Observation LastModified by Organization Detai ls LastModified Time None Recorded Concern Status LastModified by Organization Details LastModified Time None Recorded Advance Directives Directive None Recorded Payers Encounter Date Sequence Insurance Name Policy Number Policy Infante Covered Member ID Infante Member ID Guarantor Name 12/28/2023 1 [place] [id number] Anthony Downs [id number] Anthony Downs 01/11/2024 1 [place] [id number] Anthony Downs [id number] Anthony Downs 01/29/2024 1 [place] [id number] Anthony Downs [id number] Anthony Downs 04/07/2024 1 [place] [id number] Anthony Downs [id number] Anthnoy Downs Notes Date Note Type Note Provider Name and Address Organization Details Recorded Time 12/28/2023 text/html pain in upper middle abdomencrampy...wi ll then radiate to entire stomach...quits after 20 minutes...went to ER...nothing really seen but some inflammation...did not follow with GI...has quit energy drinks... Lyla Morrison PA-C Attn: Accounting, [address] [facility], [place], [address], [facility] - [facility] 12/28/2023 16:18:38 01/11/2024 text/html follow up from december...here for labs and BP follow up....stomach pains are gone presently and BP is very good Lyla Morrison PA-C Attn: Accounting, [address] [facility], [place], [place], [address] [place] [address], [facility] - [facility] 01/11/2024 17:07:57 01/29/2024 text/html gerd reoccured last night...pantoprazo le has helped a little but not much...trouble swallowing...... Lyla Morrison PA-C Attn: Accounting, 1 [facility], [place], [place], [address] [place] [address], [facility] - [facility] 01/29/2024 16:14:36 04/07/2024 text/html abdominal pain starts upper mid then radiates through entire stomach...happens mostly at night lasts about 30 minutes goes away but lingers a little...had an upper found no ulcer or cancer..saw [facility]...was rxd pantropazole Lyla Morrison PA-C Attn: Accounting, 1 [facility], [place], [address], [facility] - [facility] 04/07/2024 11:58:23
--- OUTSIDE RECORDS SUMMARY | 2024-05-05 23:28 | XMS_ITS | Continuity of Care Document ---
Author [facility] Address [address] [place] [address] Care Team Providers Care Pigment Weigher Name Role Phone LYLA MORRISON Primary Care Provider [phone] Assessment No assessment recorded. Plan of Treatment Reminders Order Date Submit Date Provider Last Modified By Organization Details Last Modified Time Details Appointments None recorded. Lab None recorded. Referral gastroenter ologist referral 2023 024 [facility], [address], [id number], [place], [address], 10:05:49 Procedures None recorded. Surgeries None recorded. Imaging None recorded. Medication Orders None recorded. Patient TargetsNo targets recorded. 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 [facility] [address], [place], [address], 04/28/2024 11:43:28 Result Notes None recorded. Medical Equipment None Reported. Allergies Allergen ID Allergen Name Allergen Category Reaction Reaction Severity Criticality Documentation Date Start Date Code Code System Note Provider Name and Address Organization Details Recorded Time 137241 Substance with sulfonami de structure and antibacte rial mechanism of action (substanc e) medicatio n hives Not available Not available 12/28/2023 94483 8003 [facility]ED [facility] 15:51:53 Medications Name Sig Start Date Stop [...] Organization Details Last Updated DateTime 173.99 cm 34 kg/m2 460083. 03 g 97 % 97 % 68 /min 16 /min 130 mm[Hg] 84 mm[Hg] Jennie Acuña MA [facility] 4 15:49:54 Social History Question Answer Notes LastModified by Organizat ion Details LastModified Time Tobacco Smoking Status Never Smoker REAL Sanchez, [place] - [facility] 12/28/2023 15:52:57 What Is Your Level Of Alcohol Consumption? Occasional Information not available 12/28/2023 What Is Your Level Of Caffeine Consumption? Moderate Information not available 12/28/2023 Are You Currently Employed? Yes Information not available 12/28/2023 What Type Of Diet Are You Following? REGULAR Information not available 12/28/2023 What Is Your Occupation? [employer] Information not available 12/28/2023 What Was The Date Of Your Most Recent Tobacco Screening? 04/07/2024 [email or web address] Information not available 04/07/2024 What Is Your Relationship Status? Information not available 12/28/2023 Do You Feel Stressed (tense, Restless, Nervous, Or Anxious, Or Unable To Sleep At Night)? [id number] Information not available 12/28/2023 Do You Use [...] Eating Disorder N Anemia N Heart Attack (SD) N Anxiety Disorder N Diabetes N Muscle, [...] Diagnosis/Indication Diagnosis SNOMED-CT Code Diagnosis ICD10 Code [id number] Lyla Morrison PA-C [facility] [address] [place] [address] 01/11/2024 16:40:47 01/14/2024 08:06:18 Essential hypertension 53207611 I10 Gastroesop hageal reflux disease without esophagitis 334830359 K21.9 Overweight 743369974 E66 .3 [id number] Lyla Morrison PA-C [facility] [address] [place] [address] 01/29/2024 15:29:37 02/05/2024 14:31:28 Gastro-esophageal reflux disease with esophagitis 224340136 K21.00 Esophageal dysphagia 408 43098 R13.19 Overweight 318827513 E66 .3 Health Concerns Section Related Observation LastModified by Organization Detai ls LastModified Time None Recorded Concern Status LastModified by Organization Details LastModified Time None Recorded Payers Encounter Date Sequence Insurance Name Policy Number Policy Infante Covered Member ID Infante Member ID Guarantor Name 01/29/2024 1 [facility]: ([place] [id number] Anthony Dwons [id number] 90 Anthony Downs Notes Date Note Type Note Provider Name and Address Organization Details Recorded Time 01/29/2024 text/html gerd reoccured last night...pantopra zole has helped a little but not much...trouble swallowing...... Lyla Morrison PA-C Attn: Accounting,[address] [place], [address], [facility] 01/29/2024 16:14:36
--- OUTSIDE RECORDS SUMMARY | 2024-05-05 23:28 | XMS_ITS | Data Portability ---
Author Organization [place] [facility] Del[facility], Main Office Address [address] [place] [address] Care Team Providers Care Permanent Mold Supervisor Name Role Phone OSCAR BRIGHT Notereader [phone] Assessment No assessment recorded. Plan of Treatment Reminders Order Date Submit Date Provider Last Modified By Organization Details Last Modified Time Details Appointments None recorded . Lab CMP, serum or plasma 023 04/18/20 23 [email or web address], [address], [place], [address], 4 16:22:42 CBC w/ auto diff 023 04/18/20 23 [email or web address] [facility], [address], [place], [address], 4 16:22:42 lipid panel, serum 023 04/18/20 23 [email or web address] [facility], [address], [place], [address], 4 16:22:42 HbA1c (hemoglo bin A1c), blood 023 04/18/20 23 [email or web address] [facility], [address], [place], [address], 4 16:22:42 TSH, serum or plasma 023 04/18/20 23 [email or web address] [facility], [address], [place], [address], 4 16:22:42 Referral None recorded . Procedures None recorded . Surgeries None recorded . Imaging None recorded . Medication Orders None recorded . Patient TargetsNo targets recorded. Patient InstructionsNo instructions recorded. Reason for Referral None Reported. Problems Name Problem SNOMED Code Status Onset Date Resolution Date Notes Provider Name and Address Organization Details Recorded Time Tinea cruris 512307050 Active Not Available [facility] 3 08:11:05 Allergic reaction 103334264 Active Not Available [facility] 3 08:11:06 High density lipoprotein deficiency 141240236 Active Not Available [facility] 3 08:11:06 Hyperlipidemi a 03218173 Active Not Available [facility] 3 08:11:06 Rhinitis 23602024 Active Not Available [facility] 3 08:11:06 Adult health examination Active 2022 JONNA Willis [address] [place] [address], [place], [address] , [facility] [email or web address] 3 15:52:29 Problem Notes None recorded. Medical Equipment None Reported. Allergies Allergen ID Allergen Name Allergen Category Reaction Reaction Severity Criticality Documentation Date Start Date Code Code System Note Provider Name and Address Organization Details Recorded Time 73477 Substance with sulfonami de structure and antibacte rial mechanism of action (substanc e) medicatio n Not available Not available Not available 07/05/2022 42830 8003 SNOMED Not Available [facility] 3 08:15:51 64433 Bactrim medicatio n Not available Not available Not available 07/05/2022 40245 9 RxNorm Not Available [facility] 3 08:15:51 Medications Name Sig Start Date Stop Date Status Note LastModified by Organization Details LastModified Time Lotrisone 1 %-0.05 % topical cream APPLY TO THE AFFECTED AND SURROUNDI NG AREAS OF SKIN BY TOPICAL ROUTE 2 TIMES PER DAY IN THE MORNING AND EVENING FOR 2 WEEKS 09/20 completed Not Available Not Available Not Available simvastatin 40 mg tablet Take 1 tablet(s) every day by oral route. active Not Available Not Available No t Available Diflucan 200 mg tablet Take 1 tablet every day by oral route. active Not Available Not Available No t Available Vitals Date Recorded Body weight Body temperature Heart rate Oxygen saturation Oxygen saturation in Arterial blood by Pulse oximetry Systolic blood pressure Diastolic blood pressure Provider Name and Address Organization Details Last Updated DateTime 3 177940. 65 g 97.7 [degF] 86 /min 97 % 97 % 124 mm[Hg] 88 mm[Hg] Farida Butler MA [employer] 3 15:38:02 Social History None recorded. Functional Status None recorded. Mental Status None recorded. Family History Nothing Reported. Medical History No medical history recorded. Past Encounters Encounter ID Performer Location Encounter Start Date Encounter Closed Date Diagnosis/Indication Diagnosis SNOMED-CT Code Diagnosis ICD10 Code [id number] JONNA Willis [facility] [address] [facility], [facility] [place] [address] 04/18/2023 15:21:27 04/18/2023 16:00:03 Adult health examination 749287137 Z00.00 Health Concerns Section Related Observation LastModified by Organization Detai ls LastModified Time None Recorded Concern Status LastModified by Organization Details LastModified Time None Recorded Advance Directives Directive None Recorded Payers Encounter Date Sequence Insurance Name Policy Number Policy Infante Covered Member ID Infante Member ID Guarantor Name 04/18/2023 1 [employer]: ([place] [id number] Anthony Downs [id number] Anthony Downs Notes Date Note Type Note Provider Name and Address Organization Details Recorded Time 04/18/2023 text/html here for annual physical JONNA Willis [address], [place], [address], [facility] [employer] 04/30/2023 18:05:50
--- OUTSIDE RECORDS SUMMARY | 2024-05-05 23:28 | XMS_ITS | Clinical Summary ---
Author Organization [facility] Address [address] [place] [address]. [place], [place] [address] [place] [address] Care Team Providers Care Reset Merchandiser Name Role Phone None, Provider MD Primary Care Provider Unavaila ble Allergies Active Allergy Reactions Criticality Noted Date Comments Sulfa Antibiotics Unknown 08/26/2023 Medications No known medications Social History Tobacco Use Types Packs/Day Years Used Date Smoking Tobacco: Never Assessed Sex and Gender Information Value Date Recorded Sex Assigned at Not on file Legal Sex Male 2:20 AM CDT Gender Identity Not on file Sexual Orientation Not on file Last Filed Vital Signs Vital Sign Reading [...] Mass Index 34.27 08/26/2023 2:32 AM CDT Plan of Treatment Health Maintenance Due Date Last Done Comments Colorectal Cancer Screening Colonoscopy (10 Years) 1975 Annual Physical 1978 Hepatitis C 1993 DTaP, Tdap and Td Vaccines ( 1 - Tdap) 1994 Hepatitis B Vaccines (1 of 3 - 19+ 3-dose series) 1994 COVID-19 Vaccine (3 - 4-2 5 season) 2024 02/10/2021, 01/13/2021 Influenza Adult (#1) 2024 02/06/2020 Meningococcal Vaccine Aged Out No elton lux eligible based on patient's age to complete this topic Pneumococcal Vaccine: Pediatrics (0 to 5 Years) and At-Risk Patients (6 to 64 Years) Aged Out No longer eligible b ased on patient's age to complete this topic RSV Immunizations Under 20 Months Aged Out No longer eligible b ased on patient's age to complete this topic Insurance [facility] Care Teams Reset Merchandiser Relationship Specialty Start Date End Date None, Provider, PCP - General UNKNOWN PHYSICIAN SPECIALTY 08/26/23
== END 2024-04-28 08:55 | disposition home or self-care (01) ==
PROVIDERS: PCP Physician Assistant; Visit Provider Nurse Practitioner Family
DX: K80.20 Calculus of gallbladder without cholecystitis without obstruction (principal); K76.0 Fatty (change of) liver, not elsewhere classified
CPT/HCPCS: 76700

== ENCOUNTER 2024-05-20 11:15 | Outpatient (CLI) | payer OTHER, SELFPAY ==
--- NOTE | ~2024-05-20 | NM_ITS ---
EXAMINATION: NM hepatobiliary wo pharm DATE: 05/20/2024 14:12 INDICATION: Epigastric pain COMPARISON: None. TECHNIQUE: 5.1 mCi Tc-99m mebrofenin (Choletec) was administered intravenously. Scintigraphic images of the abdomen were obtained for one hour. At the 1 hour time point, the patient drank 8 oz Ensure, and imaging was continued for 60 minutes. Gallbladder ejection fraction was calculated by the technol ogist. FINDINGS: There is normal clearance of radiotracer from the blood pool. There is homogeneous tracer u ptake by the liver. Activity progresses to the bowel and gallbladder. The gallbladder ejection fract ion (GBEF) is 37%. Note that with this technique, normal GBEF >= 33%. IMPRESSION: 1. Normal hepatobiliary scan. Reviewed, dictated and finalized at location B. [employer]
== END 2024-05-20 11:16 | disposition home or self-care (01) ==
PROVIDERS: PCP Physician Assistant; Visit Provider Nurse Practitioner Family
DX: R10.13 Epigastric pain (principal)
CPT/HCPCS: 78226; A9537

== ENCOUNTER 2024-06-14 07:38 | Outpatient (CLI) | payer OTHER, SELFPAY ==
--- OUTSIDE RECORDS SUMMARY | 2024-06-14 07:41 | XMS_ITS | Data Portability ---
Author Organization [facility] Address [address] [place] [address] Care Team Providers Care Truck Driver Teamster Name Role Phone LYLA MORRISON Primary Care Provider Assessment No assessment recorded. Plan of Treatment Reminders Order Date Submit Date Provider Last Modified By Organization Details Last Modified Time Details Appointments None recorded. Lab CBC 2023 024 [email or web address] [facility], [address] [place] [address] [place], [address], 09:30:30 CMP, serum or plasma 2023 024 [email or web address] [facility], [address] [place] [address] [place], [address], 4 09:30:30 HbA1c (hemoglobi n A1c), blood 2023 024 [email or web address] [facility], [address] [place] [address] [place], [address], 4 09:30:30 lipid panel, serum 2023 024 ELLI [facility], [address] [place] [address] [place], [address], 10:26:41 Referral gastroente rologist referral 2023 024 [facility], [address], [address], [place], [address], 10:05:49 Procedures None recorded. Surgeries None recorded. Imaging None recorded. Medication Orders atenolol 50 mg tablet 2023 [facility] [address] [place], [address], 16:18:06 pantoprazo le 40 mg tablet,del ayed release 2023 024 [facility] [address] [place], [address], 16:18:07 pantoprazo le 40 mg tablet,del ayed release 2023 [facility] [address] [place], [address], 11:57:31 Patient TargetsNo targets recorded. Patient Instructions Encounter Date Encounter Id Patient Instructions Last Modified By Organization Details Last Modified Time 12/28/2023 [id number] A healthy lifestyle: care instructions jnanney Not available 12/28/2023 16:18:00 learning about high blood pressure jnanney Not available 12/28/2023 16:18:00 01/11/2024 [id number] A healthy lifestyle: care instructions jnanney Not available 01/11/2024 17:07:17 learning about high blood pressure jnanney Not available 01/11/2024 17:06:11 01/29/2024 [id number] A healthy lifestyle: care instructions jnanney Not available 01/29/2024 16:13:02 04/07/2024 [id number] A healthy lifestyle: care instructions jnanney Not available 04/07/2024 11:57:50 Reason for Referral Electronics Detail Draftsperson Referral for Esophageal dysphagia Referring Physician: Lyla Morrison, Family Medicine, Encounter Date: 01/29/2024 Results Created Date Observation Date Name Description Value Unit Range Abnormal Flag Note LastModifiedBy Organization Detail LastModifiedTime 04/28/2004/28/2024 US, abdom en, compl ete No observ ation record ed. [email or web address] [facility] [address], [place], [address], 04/28/2024 11:43:28 05/20/19 25 05/20/2024 NM, hepat obili олег scan No observ ation record ed. [address], [place], [address], 05/20/2024 16:38:31 Result Notes None recorded. Procedures Surgical History None recorded. Imaging Results Imaging Date Name Status LastModified by Organization Details LastModified Time 04/28/2024 US, abdomen, complete completed [address], [place], [address], 04/28/2024 11:43:28 05/20/2024 NM, hepatobiliary scan completed [address], [place], [address], 05/20/2024 16:38:31 Procedure Notes None recorded. Medical Equipment None Reported. Allergies Allergen ID Allergen Name Allergen Category Reaction Reaction Severity Criticality Documentation Date Start Date Code Code System Note Provider Name and Address Organization Details Recorded Time 284326 Substance with sulfonami de structure and antibacte rial mechanism of action (substanc e) medicatio n hives Not available Not available 12/28/2023 00562 8003 SNOMED Not Available Not Available Not Available Medications Name Sig Start Date Stop Date [...] Address Organization Details Last Updated DateTime 4 154210. 91 g 33.1 kg/m2 173.99 cm 96 % 96 % 96 /min 134 mm[Hg] 90 mm[Hg] Cori Villanueva MA [facility] 4 15:55:40 Date Recorded Body height Body mass index (BMI) Body weight Oxygen saturation Oxygen saturation in Arterial blood by Pulse oximetry Heart rate Systolic blood pressure Diastolic blood pressure Provider Name and Address Organization Details Last Updated DateTime 4 173.99 cm 33.1 kg/m2 822581. 91 g 95 % 95 % 52 /min 110 mm[Hg] 78 mm[Hg] Cori Villanueva MA [facility] 4 16:53:19 Date Recorded Body height Body mass index (BMI) Body weight Oxygen saturation Oxygen saturation in Arterial blood by Pulse oximetry Heart rate Respiratory rate Systolic blood pressure Diastolic blood pressure Provider Name and Address Organization Details Last Updated DateTime 4 173.99 cm 34 kg/m2 676735. 03 g 97 % 97 % 68 /min 16 /min 130 mm[Hg] 84 mm[Hg] Jennie Acuña MA [facility] 4 15:49:54 Date Recorded Body height Body mass index (BMI) Body weight Oxygen saturation Oxygen saturation in Arterial blood by Pulse oximetry Heart rate Systolic blood pressure Diastolic blood pressure Provider Name and Address Organization Details Last Updated DateTime 4 173.99 cm 34.3 kg/m2 296478. 05 g 98 % 98 % 94 /min 121 mm[Hg] 85 mm[Hg] Yovana Hendrickson MA [facility] 4 11:41:48 Social History Question Answer Notes LastModified by Organizat ion Details LastModified Time Tobacco Smoking Status Never Smoker Cori Villanueva MA null, [facility] 12/28/2023 15:52:57 What Is Your Level Of Alcohol Consumption? Occasional Information not available 12/28/2023 What Is Your Level Of Caffeine Consumption? Moderate Information not available 12/28/2023 Are You Currently Employed? Yes Information not available 12/28/2023 What Type Of Diet Are You Following? 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 04/07/2024 [email or web address] Information not available 04/07/2024 What Is Your Relationship Status? Information not available 12/28/2023 Do You Feel Stressed (tense, Restless, Nervous, Or Anxious, Or Unable To Sleep At Night)? [id number] Information not available 12/28/2023 Do You Use [...] Response Coronary Artery Disease N Other N Atrial Fibrillation N High Blood Pressure N Thyroid Problems N Kidney or Bladder Problems N Depression N COPD N Blood Clots N GI Problems N Have you had a mammogram in the last yea r? N Skin Problems N Eating Disorder N Anemia N Heart Attack ([place]) N Diabetes N Anxiety Disorder N Muscle, Joint, or Bone Problems N Seizures/Epilepsy N Have you had a colonoscopy in the last 1 0 years? N Arthritis N Acid Reflux (GERD) N Cancer N Stroke N Allergies N Asthma N Have you had a PSA blood test in the las t year? N ADHD N Substance Abuse N High Cholesterol N Hepatitis N Liver Disease N Schizophrenia N Headaches N Osteoporosis N Heart Failure N Past Encounters Encounter ID Performer Location Encounter Start Date Encounter Closed Date Diagnosis/Indication Diagnosis SNOMED-CT Code Diagnosis ICD10 Code Diagnosis Note [id number] Lyla Morrison PA-C [facility] [address] [place] [address] 12/28/2023 15:23:19 12/31/2023 14:21:37 Burning epigastric pain 25784139 R10.13 Overweight 463978288 E66 .3 Essential hypertension 16293148 I10 [id number] Lyla Morrison PA-C [facility] [address] [place] [address] 01/11/2024 16:40:47 01/14/2024 08:06:18 Essential hypertension 27583809 I10 Gastroesop hageal reflux disease without esophagitis 852921184 K21.9 Overweight 877375587 E66 .3 [id number] Lyla Morrison PA-C [facility] [address] [place] [address] 01/29/2024 15:29:37 02/05/2024 14:31:28 Gastro-esophageal reflux disease with esophagitis 600326061 K21.00 Esophageal dysphagia 408 80644 R13.19 Overweight 943514927 E66 .3 [id number] Lyla Morrison PA-C [facility] [address] [place] [address] 04/07/2024 11:21:38 04/09/2024 15:09:21 Epigastric pain 35339683 R10.13 Overweight 634317166 E66 .3 Health Concerns Section Related Observation LastModified by Organization Detai ls LastModified Time None Recorded Concern Status LastModified by Organization Details LastModified Time None Recorded Advance Directives Directive None Recorded Payers Encounter Date Sequence Insurance Name Policy Number Policy Infante Covered Member ID Infante Member ID Guarantor Name 12/28/2023 1 [id number] Anthony Downs [id number] Anthony Downs 01/11/2024 1 [place] [id number] Anthony Downs [id number] Anthony Downs 01/29/2024 1 [place] [id number] Anthony Downs [id number] Anthony Downs 04/07/2024 1 [facility] ([place] [id number] Anthony Downs [id number] 90 Anthony Downs Notes Date Note Type Note Provider Name and Address Organization Details Recorded Time 12/28/2023 text/html pain in upper middle abdomencrampy...wi ll then radiate to entire stomach...quits after 20 minutes...went to ER...nothing really seen but some inflammation...did not follow with GI...has quit energy drinks... Lyla Morrison PA-C Attn: Accounting, [address] [place], [place], [address] [place] [address], [facility] 12/28/2023 16:18:38 01/11/2024 text/html follow up from december...here for labs and BP follow up....stomach pains are gone presently and BP is very good Lyla Morrison PA-C Attn: Accounting, [address] [place], [place], [address] [place] [address], [facility] 01/11/2024 17:07:57 01/29/2024 text/html gerd reoccured last night...pantoprazo le has helped a little but not much...trouble swallowing...... Lyla Morrison PA-C Attn: Accounting, [address] [place], [place], [address] [place] [address], [facility] 01/29/2024 16:14:36 04/07/2024 text/html abdominal pain starts upper mid then radiates through entire stomach...happens mostly at night lasts about 30 minutes goes away but lingers a little...had an upper found no ulcer or cancer..saw [facility]...was rxd pantropazole Lyla Morrison PA-C Attn: Accounting, [address] [place], [place], [address] [place] [address], [facility] 04/07/2024 11:58:23
--- OUTSIDE RECORDS SUMMARY | 2024-06-14 07:42 | XMS_ITS | Data Portability ---
Author Organization [place] [facility] [employer], Main Office Address [address] [place] [address] Care Team Providers Care Global Chief Experience Officer Name Role Phone OSCAR BRIGHT Hammer Smith Assessment No assessment recorded. Plan of Treatment Reminders Order Date Submit Date Provider Last Modified By Organization Details Last Modified Time Details Appointments None recorded . Lab CMP, serum or plasma 023 04/18/20 23 [email or web address] [employer] [facility], [address], [place], [address], 4 16:22:42 CBC w/ auto diff 023 04/18/20 23 [email or web address] [facility], [address], [place], [address], 4 16:22:42 lipid panel, serum 023 04/18/20 23 [id number] [facility], [address], [place], [address], 4 16:22:42 HbA1c (hemoglo bin A1c), blood 023 04/18/20 23 [email or web address] [facility], [address], [place], [address], 4 16:22:42 TSH, serum or plasma 023 04/18/20 23 [email or web address] [facility], [address], [place], [address], 4 16:22:42 Referral None recorded . Procedures None recorded . Surgeries None recorded . Imaging None recorded . Medication Orders None recorded . Patient TargetsNo targets recorded. Patient InstructionsNo instructions recorded. Reason for Referral None Reported. Problems Name Problem SNOMED Code Status Onset Date Resolution Date Notes Provider Name and Address Organization Details Recorded Time Tinea cruris 547323607 Active Not Available [facility] 3 08:11:05 Allergic reaction 973696715 Active Not Available [facility] 3 08:11:06 High density lipoprotein deficiency 181182361 Active Not Available [facility] 3 08:11:06 Hyperlipidemi a 47273202 Active Not Available [facility] 3 08:11:06 Rhinitis 96254470 Active Not Available [facility] 3 08:11:06 Adult health examination Active 2022 JONNA Willis [address] [place] [address], [place], [address] , [facility] [employer] 3 15:52:29 Problem Notes None recorded. Medical Equipment None Reported. Allergies Allergen ID Allergen Name Allergen Category Reaction Reaction Severity Criticality Documentation Date Start Date Code Code System Note Provider Name and Address Organization Details Recorded Time 60390 Substance with sulfonami de structure and antibacte rial mechanism of action (substanc e) medicatio n Not available Not available Not available 07/05/2022 03212 8003 SNOMED Not Available [facility] 3 08:15:51 58312 Bactrim medicatio n Not available Not available Not available 07/05/2022 14760 9 RxNorm Not Available [facility] 3 08:15:51 Medications Name Sig Start Date [...] Address Organization Details Last Updated DateTime 3 246759. 65 g 97.7 [degF] 86 /min 97 % 97 % 124 mm[Hg] 88 mm[Hg] Farida Butler MA [employer] 3 15:38:02 Social History None recorded. Functional Status None recorded. Mental Status None recorded. Family History Nothing Reported. Medical History No medical history recorded. Past Encounters Encounter ID Performer Location Encounter Start Date Encounter Closed Date Diagnosis/Indication Diagnosis SNOMED-CT Code Diagnosis ICD10 Code Diagnosis Note [id number] JONNA Willis [facility] [address] [facility] , [facility] [place] [address] 04/18/2023 15:21:27 04/18/2023 16:00:03 Adult health examination 729247489 Z00.00 Health Concerns Section Related Observation LastModified by Organization Detai ls LastModified Time None Recorded Concern Status LastModified by Organization Details LastModified Time None Recorded Advance Directives Directive None Recorded Payers Encounter Date Sequence Insurance Name Policy Number Policy Infante Covered Member ID Infante Member ID Guarantor Name 04/18/2023 1 [facility] [id number] Anthony Downs [id number] Anthony Downs Notes Date Note Type Note Provider Name and Address Organization Details Recorded Time 04/18/2023 text/html here for annual physical JONNA Willis [address], [facility] [address], [place], [address], [facility] [employer] 04/30/2023 18:05:50
--- OUTSIDE RECORDS SUMMARY | 2024-06-14 07:42 | XMS_ITS | Clinical Summary ---
Author Organization [facility] Address [address] [place] [address] Care Team Providers Care Primary Care Coordinator Name Role Phone None, Provider MD Primary [...] 85 08/26/2023 2:32 AM CDT Temperature 36.2 C (97.2 F) 08/26/2023 2:32 AM CDT Respiratory Rate 20 08/26/2023 2:32 AM CDT [...] - 19+ 3-dose series) 1994 COVID-19 Vaccine (2023-2 5 season) 2024 02/10/2021, 01/13/2021 Influenza Adult (#1) 2024 02/06/2020 Meningococcal B Vaccine Aged Out No l onger eligible based on patient's age to complete this topic Meningococcal Vaccine Aged Out No elton lux [...] patient's age to complete this topic Insurance [facility] Care Teams Primary Care Coordinator Relationship Specialty Start Date End Date None, Provider, PCP - General UNKNOWN PHYSICIAN SPECIALTY 08/26/23
[2024-06-14 08:02] LABS: Alanine Aminotransferase 51 U/L (6-50); Albumin Level 4.6 g/dL (3.5-5.1); Alkaline Phosphatase 57 U/L (38-126); Amylase 67 U/L (30-110); Aspartate Amino Transferase 34 U/L (17-59); Bilirubin,Total 0.7 mg/dL (0.2-1.3); Lipase 247 U/L (23-300)
--- NOTE | 2024-06-14 08:02 | ECG_ITS ---
Test Date: 2024-06-14 08:21:33 Measurements Intervals [place] Rate: 70 P: 27 UT: 146 QRS: 25 QRSD: 90 T: 10 QT: 354 QTc: 383 Interpretive Statements SINUS RHYTHM CONSIDER INFERIOR INFARCT, AGE INDETERMINATE BASELINE ARTIFACT- I, II, AVR, AVL, V3 ABNORMAL ECG No previous ECG available for comparison Electronically Signed On 06-14-2024 10:46:26 COLLISION CENTER MANAGER by Miguel Levi D.O.
== END 2024-06-14 07:39 | disposition home or self-care (01) ==
LOC: ANHLAB 07:39
PROVIDERS: Visit Provider Surgery
DX: K80.20 Calculus of gallbladder without cholecystitis without obstruction (principal); I10 Essential (primary) hypertension; Z01.818 Encounter for other preprocedural examination; R94.31 Abnormal electrocardiogram [ECG] [EKG]
CPT/HCPCS: 36415; 80076; 82150; 83690; 86850; 86900; 86901; 93005

== ENCOUNTER 2024-06-17 00:48 | Day surgery (SDC) | payer OTHER, SELFPAY ==
[2024-06-12 09:41] VITALS: BMI 32.5
--- NOTE | 2024-06-12 09:46 | PC.NURSE ---
Report to the Outpatient Waiting Room, entrance under the green pavilion located off [facility], at time _1130_ on date _[id number]_. Planned Procedure Time: _130pm_.? Time changes happen often and if your time is changed the preop area will call you the afternoon before. - You and your visitor will be asked to self-screen and do not enter if you have any COVID symptoms. Please call surgeon if you need to reschedule. - A mask is optional within the hospital at this time. Patients may have clear liquids (water, carbonated beverages, clear teas, apple juice) until 3 hours prior to surgery with a maximum of 20 ounces. - No food from midnight until time of surgery and no smoking, or chewing tobacco (or any form of nicotine). No chewing gum, candy or mints. Take only the following medications with a SIP of water on the morning of surgery: __Atenolol DO NOT STOP ANY OF YOUR OTHER PRESCRIPTION MEDICATIONS PRIOR TO SURGERY EXCEPT THE FOLLOWING Hold all vitamins and supplements for 3 days per anesthesiologist. Medications to discontinue per physician __None Please no make-up, nail belarusian, hairspray, perfume, deodorant, or body powder the day of surgery.? No jewelry (including any body piercings) or valuables the day of surgery, leave them at home.? Please take a shower or bath the night before, or the morning of, surgery with an antibacterial soap.? Wear comfortable, loose fitting clothing.? - Jewelry must be removed prior to entering the operating room.? Rings and piercings that are not removed may be cut off. - The hospital will not accept responsibility for valuables.? - Please leave all valuables, including medications, at home the day of surgery. If you are going home after surgery, a licensed local city driver must drive you home.? - NO public transportation without another adult if you receive anesthesia. - We recommend that an adult stay with you for 24 hours following discharge. - We also recommend that you do not drive, make important decision, drink alcoholic beverages, or take any drugs that were not prescribed by your health care provider for at least 24 hours after your discharge time. Follow any additional instructions given to you from your surgeon. Telephone instructions given to __Bill__and asked if any additional questions and then verbalized understanding. Patient advised to call surgeon office or pre surgery nurse liaison [phone] if any additional questions.
[2024-06-17] VITALS (9 sets, daily range): BP systolic 134–146; BP diastolic 83–100; PULSE 67–83; RESP 14–18; TEMP 36.4–36.7; O2SAT 95–100; BMI 31.4
--- OUTSIDE RECORDS SUMMARY | 2024-06-17 00:52 | XMS_ITS | Data Portability ---
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 Plan of Treatment Reminders Order Date Submit Date Provider Last Modified By Organization Details Last Modified Time Details Appointments None recorded . Lab CMP, serum or plasma 023 04/18/20 23 [email or web address] [facility], [address], [place], [address], 4 16:22:42 CBC w/ auto diff 023 04/18/20 23 [email or web address] [facility], [address], [place], [address], 4 16:22:42 lipid panel, serum 023 04/18/20 23 [email or web address] [facility], [address], [place], [address], 4 16:22:42 HbA1c (hemoglo bin A1c), blood 023 04/18/20 23 [email or web address] [facility], [address], [place], [address], 4 16:22:42 TSH, serum or plasma 023 04/18/20 23 [email or web address] [facility], [address], [place], [address], 4 16:22:42 Referral None recorded . Procedures None recorded . Surgeries None recorded . Imaging None recorded . Medication Orders None recorded . Patient TargetsNo targets recorded. Patient InstructionsNo instructions recorded. Reason for Referral None Reported. Problems Name Problem SNOMED Code Status Onset Date Resolution Date Notes Provider Name and Address Organization Details Recorded Time Tinea cruris 145489975 Active Not Available [facility] 3 08:11:05 Allergic reaction 065692397 Active Not Available [facility] 3 08:11:06 High density lipoprotein deficiency 791622993 Active Not Available [facility] 3 08:11:06 Hyperlipidemi a 83664624 Active Not Available [facility] 3 08:11:06 Rhinitis 84023896 Active Not Available [facility] 3 08:11:06 Adult health examination Active 2022 JONNA Willis [address] [place] [address], [place], [address] , [facility] [employer] 3 15:52:29 Problem Notes None recorded. Medical Equipment None Reported. Allergies Allergen ID Allergen Name Allergen Category Reaction Reaction Severity Criticality Documentation Date Start Date Code Code System Note Provider Name and Address Organization Details Recorded Time 05109 Substance with sulfonami de structure and antibacte rial mechanism of action (substanc e) medicatio n Not available Not available Not available 07/05/2022 87048 8003 SNOMED Not Available [facility] 3 08:15:51 20980 Bactrim medicatio n Not available Not available Not available 07/05/2022 02414 9 RxNorm Not Available [facility] 3 08:15:51 Medications Name Sig Start [...] Address Organization Details Last Updated DateTime 3 768572. 65 g 97.7 [degF] 86 /min 97 % 97 % 124 mm[Hg] 88 mm[Hg] Farida Butler MA [employer] 3 15:38:02 Social History None recorded. Functional Status None recorded. Mental Status None recorded. Family History Nothing Reported. Medical History No medical history recorded. Past Encounters Encounter ID Performer Location Encounter Start Date Encounter Closed Date Diagnosis/Indication Diagnosis SNOMED-CT Code Diagnosis ICD10 Code Diagnosis Note [id number] JONNA Willis [facility] [address] [facility] , [facility] [place] [address] 04/18/2023 15:21:27 04/18/2023 16:00:03 Adult health examination 652719915 Z00.00 Health Concerns Section Related Observation LastModified by Organization Detai ls LastModified Time None Recorded Concern Status LastModified by Organization Details LastModified Time None Recorded Advance Directives Directive None Recorded Payers Encounter Date Sequence Insurance Name Policy Number Policy Infante Covered Member ID Infante Member ID Guarantor Name 04/18/2023 1 [facility]: (PPO[place] [id number] Anthony Downs [id number] Anthony Downs Notes Date Note Type Note Provider Name and Address Organization Details Recorded Time 04/18/2023 text/html here for annual physical JONNA Willis [address], [facility] [address], [place], [address], [facility] [employer] 04/30/2023 18:05:50
--- OUTSIDE RECORDS SUMMARY | 2024-06-17 00:52 | XMS_ITS | Data Portability ---
Author Organization [facility] [place] [facility] Address [address] [facility] [place] [address] Care Team Providers Care Broadcast Systems Engineer Name Role Phone LYLA MORRISON Primary Care Provider [phone] Assessment No assessment recorded. Plan of Treatment Reminders Order Date Submit Date Provider Last Modified By Organization Details Last Modified Time Details Appointments None recorded. Lab CBC 2023 024 [email or web address] [facility], [address] [place] [address] [place], [place], [address], 09:30:30 CMP, serum or plasma 2023 024 [email or web address] [facility], [address] [place] [address] [place], [address], 4 09:30:30 HbA1c (hemoglobi n A1c), blood 2023 024 dturnerma [facility], [address] [place] [address] [place], [address], 4 09:30:30 lipid panel, serum 2023 024 ELLI [facility], [address] [place] [address] [place], [address], 10:26:41 Referral gastroente rologist referral 2023 024 [facility], [address], [address], [place], [address], 10:05:49 Procedures None recorded. Surgeries None recorded. Imaging None recorded. Medication Orders atenolol 50 mg tablet 2023 [facility] [address] [place], [address], 16:18:06 pantoprazo le 40 mg tablet,del ayed release 2023 024 [facility] [address] [place], [address], 16:18:07 pantoprazo le 40 mg tablet,del ayed release 2023 [facility] [address] [place], [address], 11:57:31 Patient TargetsNo targets recorded. Patient Instructions Encounter Date Encounter Id Patient Instructions Last Modified By Organization Details Last Modified Time 12/28/2023 [id number] A healthy lifestyle: care instructions jnanney Not available 12/28/2023 16:18:00 learning about high blood pressure jnanney Not available 12/28/2023 16:18:00 01/11/2024 [id number] A healthy lifestyle: care instructions jnanney Not available 01/11/2024 17:07:17 learning about high blood pressure jnanney Not available 01/11/2024 17:06:11 01/29/2024 [id number] A healthy lifestyle: care instructions jnanney Not available 01/29/2024 16:13:02 04/07/2024 [id number] A healthy lifestyle: care instructions jnanney Not available 04/07/2024 11:57:50 Reason for Referral Sharepoint Specialist Referral for Esophageal dysphagia Referring Physician: Lyla Morrison, Family Medicine, Encounter Date: 01/29/2024 Results Created Date Observation Date Name Description Value Unit Range Abnormal Flag Note LastModifiedBy Organization Detail LastModifiedTime 04/28/2004/28/2024 US, abdom en, compl ete No observ ation record ed. [email or web address] [facility] [address], [place], [address], 04/28/2024 11:43:28 05/20/19 25 05/20/2024 NM, hepat obili олег scan No observ ation record ed. [address], [place], [address], 05/20/2024 16:38:31 Result Notes None recorded. Procedures Surgical History None recorded. Imaging Results Imaging Date Name Status LastModified by Organization Details LastModified Time 04/28/2024 US, abdomen, complete completed [address], [place], [address], 04/28/2024 11:43:28 05/20/2024 NM, hepatobiliary scan completed [address], [place], [address], 05/20/2024 16:38:31 Procedure Notes None recorded. Medical Equipment None Reported. Allergies Allergen ID Allergen Name Allergen Category Reaction Reaction Severity Criticality Documentation Date Start Date Code Code System Note Provider Name and Address Organization Details Recorded Time 874238 Substance with sulfonami de structure and antibacte rial mechanism of action (substanc e) medicatio n hives Not available Not available 12/28/2023 44035 8003 SNOMED Not Available Not Available Not [...] Address Organization Details Last Updated DateTime 4 135086. 91 g 33.1 kg/m2 173.99 cm 96 % 96 % 96 /min 134 mm[Hg] 90 mm[Hg] Cori Villanueva MA [facility] 4 15:55:40 Date Recorded Body height Body mass index (BMI) Body weight Oxygen saturation Oxygen saturation in Arterial blood by Pulse oximetry Heart rate Systolic blood pressure Diastolic blood pressure Provider Name and Address Organization Details Last Updated DateTime 4 173.99 cm 33.1 kg/m2 540887. 91 g 95 % 95 % 52 /min 110 mm[Hg] 78 mm[Hg] Cori Villanueva MA [facility] 4 16:53:19 Date Recorded Body height Body mass index (BMI) Body weight Oxygen saturation Oxygen saturation in Arterial blood by Pulse oximetry Heart rate Respiratory rate Systolic blood pressure Diastolic blood pressure Provider Name and Address Organization Details Last Updated DateTime 4 173.99 cm 34 kg/m2 966973. 03 g 97 % 97 % 68 /min 16 /min 130 mm[Hg] 84 mm[Hg] Jennie Acuña MA [facility] 4 15:49:54 Date Recorded Body height Body mass index (BMI) Body weight Oxygen saturation Oxygen saturation in Arterial blood by Pulse oximetry Heart rate Systolic blood pressure Diastolic blood pressure Provider Name and Address Organization Details Last Updated DateTime 4 173.99 cm 34.3 kg/m2 668688. 05 g 98 % 98 % 94 /min 121 mm[Hg] 85 mm[Hg] Yovana Hendrickson MA [facility] 4 11:41:48 Social History Question Answer Notes LastModified by Organizat ion Details LastModified Time Tobacco Smoking Status Never Smoker Cori Villanueva MA null, [facility] 12/28/2023 15:52:57 What Is Your Level Of Alcohol Consumption? Occasional Information not available 12/28/2023 What Is Your Level Of Caffeine Consumption? Moderate Information not available 12/28/2023 Are You Currently Employed? Yes Information not available 12/28/2023 What Type Of Diet Are You Following? 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 04/07/2024 [email or web address] Information not available 04/07/2024 What Is Your Relationship Status? Information not available 12/28/2023 Do You Feel Stressed (tense, Restless, Nervous, Or Anxious, Or Unable To Sleep At Night)? [id number] Information not available 12/28/2023 Do You Use [...] Eating Disorder N Anemia N Heart Attack (VT) N Diabetes N Anxiety Disorder N Muscle, [...] SNOMED-CT Code Diagnosis ICD10 Code Diagnosis Note [id number] Lyla Morrison PA-C [facility] [address] [place] [address] 12/28/2023 15:23:19 12/31/2023 14:21:37 Burning epigastric pain 51666916 R10.13 Overweight 983457009 E66 .3 Essential hypertension 53446497 I10 [id number] Lyla Morrison PA-C [facility] [address] [place] [address] 01/11/2024 16:40:47 01/14/2024 08:06:18 Essential hypertension 52189115 I10 Gastroesop hageal reflux disease without esophagitis 982116716 K21.9 Overweight 106608664 E66 .3 [id number] Lyla Morrison PA-C [facility] [address] [place] [address] 01/29/2024 15:29:37 02/05/2024 14:31:28 Gastro-esophageal reflux disease with esophagitis 832126203 K21.00 Esophageal dysphagia 408 59496 R13.19 Overweight 208031370 E66 .3 [id number] Lyla Morrison PA-C [facility] [address] [place] [address] 04/07/2024 11:21:38 04/09/2024 15:09:21 Epigastric pain 76772383 R10.13 Overweight 299124372 E66 .3 Health Concerns Section Related Observation LastModified by Organization Detai ls LastModified Time None Recorded Concern Status LastModified by Organization Details LastModified Time None Recorded Advance Directives Directive None Recorded Payers Encounter Date Sequence Insurance Name Policy Number Policy Infante Covered Member ID Infante Member ID Guarantor Name 12/28/2023 1 [place] [id number] Anthony Downs [id number] Anthony Downs 01/11/2024 1 [place] [id number] Anthony Downs [id number] Anthony Downs 01/29/2024 1 [place] [id number] Anthony Downs [id number] Anthony Downs 04/07/2024 1 [facility]: ([place] [id number] Anthony Downs [id number] Anthony Downs Notes Date Note Type Note Provider Name and Address Organization Details Recorded Time 12/28/2023 text/html pain in upper middle abdomencrampy...wi ll then radiate to entire stomach...quits after 20 minutes...went to ER...nothing really seen but some inflammation...did not follow with GI...has quit energy drinks... Lyla Morrison PA-C Attn: Accounting, [address] [place], [place], [address] [place] [address], [facility] 12/28/2023 16:18:38 01/11/2024 text/html follow up from december...here for labs and BP follow up....stomach pains are gone presently and BP is very good Lyla Morrison PA-C Attn: Accounting, [address] [place], [place], [address] [place] [address], [facility] 01/11/2024 17:07:57 01/29/2024 text/html gerd reoccured last night...pantoprazo le has helped a little but not much...trouble swallowing...... Lyla Morrison PA-C Attn: Accounting, [address] [place], [place], [address] [place] [address], [facility] 01/29/2024 16:14:36 04/07/2024 text/html abdominal pain starts upper mid then radiates through entire stomach...happens mostly at night lasts about 30 minutes goes away but lingers a little...had an upper found no ulcer or cancer..saw [facility]...was rxd pantropazole Lyla Morrison PA-C Attn: Accounting, [address] [place], [place], [address] [place] [address], [facility] 04/07/2024 11:58:23
--- OUTSIDE RECORDS SUMMARY | 2024-06-17 00:52 | XMS_ITS | Clinical Summary ---
Author Organization [facility] Address [address] [place] [address] Care Team Providers Care Brake Press Operator Name Role Phone None, Provider MD Primary [...] patient's age to complete this topic Insurance [facility] Care Teams Brake Press Operator Relationship Specialty Start Date End Date None, Provider, PCP - General UNKNOWN PHYSICIAN SPECIALTY 08/26/23
[2024-06-17] MEDS: INDOCYANINE GREEN 25 MG VIAL WITH DILUENT 3.75 MG IV PUSH (12:41)
[2024-06-17] MEDS: KETOROLAC 15 MG/ML VIAL (*BKC) IV PUSH (12:42)
[2024-06-17] MEDS: ACETAMINOPHEN 500 MG TABLET 1000 MG PO (12:42)
--- NOTE | 2024-06-17 13:49 | WPDHPUPDATE1 ---
History and Physical Update Update Date/Time: 06/17/24 13:49 History and Physical has been reviewed, including an updated exam of the patient. There are NO changes in the patient's condition. The plan will be changed to laparoscopic cholecystectomy, da Kaushik assisted. The assessment and plan otherwise remains unchanged. Patient agrees to proceed. Risks, benefits, and alternatives have been discussed and questions answered. Patient agrees to proceed with procedure.
--- NOTE | 2024-06-17 14:01 | WPDANESEPPF ---
Anes - Initial Pre Proc Eval Procedure: Operation Date: 06/17/24 13:30 Proposed Procedures p Robotic Assisted Cholecystectomy - Ruy Ding DO Date/Time: 06/17/24 14:01 Surgeon: Ruy Ding DO Pre Op Diagnosis: symptomatic cholelithiasis Patient Data Age: 48 Gender: M Height: 1.75 m Weight: 100 kg Allergies Allergy/AdvReac Type Severity Reaction Status Date / Time Sulfa (Sulfonamide Allergy Mild Hives Verified 06/17/24 14:01 Antibiotics) Home Medications ?Medication ?Instructions ?Recorded ?Confirmed ?Type atenolol 50 mg tablet 50 mg PO DAILY 02/22/24 06/12/24 History pantoprazole 40 mg tablet,delayed 40 mg PO QAM 02/22/24 06/12/24 History release Patient hx anesthesia problems: none Family hx anesthesia problems: none Results Review: All pre-operative results and documents have been reviewed as part of the pre-operative evaluation. [facility] Past Medical History Medical History Adenomatous colon polyp Fatty liver disease, nonalcoholic Encounter for screening colonoscopy Epigastric pain Hypertension Surgical History Surgical History History of bilateral carpal tunnel release Family History Family History Grandparent Carcinoma of colon Other Hypertension Social History Social History Smoking status: Never smoker Alcohol intake: current Drinks per week: 10 Alcohol use details: 1-4 week Substance use: never Substance use type: does not use Do You Feel Safe in your Home?: Yes Lack of Transportation: No Lack of Food: Never True Current Housing: I Have Housing Concerned About Future Housing: No Difficulty Paying Gas/Electric Bills: No Difficulty Paying for Meds: No Currently Unemployed: No Education: High School Diploma/GED Difficulty w/ Childcare or Family Care: No Living arrangements: with family Spiritual care concerns: No Anes - Eval Final PreProcedure Day of Procedure 06/17/24 14:01 Patient weight: obese Lungs: normal air movement Airway: Mallampati scale class II Neurological: alert and oriented Last oral intake: >/= 8 hours ASA classification: III Emergent: no Anesthetic plan: proceed Anesthesia type and monitoring: general ETT and standard monitoring Results Review: All pre-operative results and documents have been reviewed as part of the pre-operative evaluation. HTN on b lisseth, MIKE on CPAP. EKG reviewed. Informed Consent: The patient's anesthetic plan and its attendant risks and benefits were discussed with the patient/family/POA. Questions were solicited and answers provided to the satisfaction of the patient/family/POA.
[2024-06-17] MEDS: ceFAZolin 2 GM/D5W 50 ML 2 GM/50 ML BAG IVPB (14:11)
[2024-06-17] MEDS: BUPIVACAINE/EPINEPHRINE 0.5% 50 ML VIAL 30 ML INFILTRATE (14:41)
--- NOTE | 2024-06-17 15:17 | P.OP_ITS ---
Procedure Note - Detailed Date of Procedure 06/17/24 Pre-op Diagnosis symptomatic cholelithiasis Post-op Diagnosis Same Procedure Performed 1. Laparoscopic cholecystectomy with cholangiography, da Kaushik assisted 2. Interpretation of cholangiography Surgeon Ruy Ding, DO Anesthesia General and Local (0.5% bupivacaine) Indications This is a 48-year-old man who presents with intermittent upper abdominal pain for the past couple months. He had an upper quadrant abdominal ultrasound which showed evidence of cholelithiasis. He also had a normal HIDA scan. He continued to have intermittent pains. Discussions were made with the patient about treatment options and decision was made to proceed with robotic assisted laparoscopic cholecystectomy with cholangiography and interpretation of cholangiography. Findings Robotic assisted laparoscopic cholecystectomy with cholangiography was performed. The patient was given 1.5 mL of indocyanine green IV preoperatively. Near infrared fluorescence imaging was then used intraoperatively to identify the biliary anatomy. The cystic duct was clearly visualized and this was visualized lateral to the common hepatic and common bile duct. No other biliary anomalies were identified. For multiple gallstones within the gallbladder. The gallbladder otherwise appeared normal. The gallbladder was removed and sent to the lab for pathology. Description of Procedure Procedure as well as risks, benefits, and alternatives were discussed with the patient. Written consent was obtained and placed in chart prior to procedure. 1.5 mL of indocyanine green was given intravenously in preop. Patient was brought back to surgical suite. He was placed supine on operating table. Time- out was done to confirm patient and procedure. He was then intubated by the anesthesia department. His abdomen was then prepped and draped in sterile fashion using chlorhexidine prep. 0.5% bupivacaine was infiltrated locally at the site of each port placement. An 8 mm incision was made in the left upper quadrant and a 5 mm Optiview trocar was then advanced through the abdominal layers under direct visualization. Once inside the abdominal cavity, carbon dioxide insufflation was used to create a pneumoperitoneum. The camera was inserted and the abdomen was inspected. No mediated abnormalities were noted. The patient was placed in 12? reverse Trendelenburg position and rotated 6? to the left. Two 8 mm incisions were made in the right lateral abdomen and 2 8 mm trocars were inserted under direct visualization. An 8 mm incision was made in the supraumbilical region and an 8 mm trocar was inserted under direct visualization. The 5 mm Optiview trocar was then removed and another 8 mm trocar was inserted in its place. The robotic arms were then brought up to the patient's bedside and secured to each port. The camera and instruments were inserted. I then moved over to the robotic consult to take control of the camera and instruments. The gallbladder was grasped at the fundus and retracted cephalad. The infundibulum of the gallbladder was then grasped and retracted laterally. Hook electrocautery was then used to carefully dissect around the neck of the gallbladder. The cystic duct was identified and a window was created around it using hook electrocautery. The cystic artery was also identified and a window was created behind it using hook electrocautery. Critical view of safety was identified visualizing the cystic duct running directly into the neck of the gallbladder and the cystic artery running directly into the wall the gallbladder. The camera view was switched to firefly mode and the indocyanine green within the gallbladder and cystic duct was clearly visualized. No other structures were noted running into this region and there did not appear to be any obstruction of the cystic duct impeding flow of bile into the gallbladder. The camera mode was switched back to regular mode. Hemo lock clips were placed on both the cystic duct and cystic artery. Two clips were placed proximally and 1 distally. Hook electrocautery was then used to transect in between the clips. Once safely away from the claudette hepatus, hook electrocautery was used to dissect the gallbladder off of the liver bed. Once the gallbladder was completely dissected free it was then placed in an Endo- Catch bag and removed through the left upper quadrant port site. The liver bed was carefully inspected. Hemostasis appeared adequate under clips appeared secure. No other intra-abdominal abnormalities were noted. A Karlo cone was then used to approximate the fascia of the left upper quadrant port using an 0 Vicryl suture. The remaining instruments and camera were removed and the robotic arms were disengaged from the ports. Pneumoperitoneum was released and the ports were removed. The skin of each of the incisions was then approximated using 4-0 Monocryl subcuticular suture. Exofin glue was then applied on top. Patient was then awakened from anesthesia, extubated, and transferred to recovery. Estimated Blood Loss 5 Pathology Yes (Gallbladder) Complications No immediate complications Condition Stable Disposition Same day [facility] Billing Surgery - Charge Forward: Surgery Billing
[2024-06-17] MEDS: LACTATED RINGERS 1,000 ML 30 ML IV CONT ×2 (15:22)
[2024-06-17] MEDS: fentaNYL CITRATE INJ (*CRX) 100 MCG/2 ML VIAL 25 MCG IV PUSH ×6 (15:44→17:19)
[2024-06-17] MEDS: oxyCODONE HCL (*CRX) 5 MG TAB IR PO (16:48)
== END 2024-06-17 17:40 | disposition home or self-care (01) ==
PROVIDERS: PCP Physician Assistant; Visit Provider Surgery
PROC: 0FT44ZZ Resection of Gallbladder, Percutaneous Endoscopic Approach (ICD-10-PCS; CPT 47562; principal; 2024-06-17 13:30)
DX: K80.10 Calculus of gallbladder with chronic cholecystitis without obstruction (principal); I10 Essential (primary) hypertension; E66.9 Obesity, unspecified; Z68.31 Body mass index [BMI] 31.0-31.9, adult; Z98.890 Other specified postprocedural states; Z86.0100 Personal history of colon polyps, unspecified; Z80.0 Family history of malignant neoplasm of digestive organs
CPT/HCPCS: 47563; S2900; 88304; A9270; J0690; J1100; J1885; J2003; J2250; J2405; J2704; J3010; J7120

== ENCOUNTER 2025-03-03 16:51 | Emergency (ER) | payer OTHER, SELFPAY ==
--- NOTE | 2025-03-03 16:55 | ECG_ITS ---
Test Date: 2025-03-03 17:01:40 Measurements Intervals [place] Rate: 65 P: 39 MS: 155 QRS: 34 QRSD: 88 T: 17 QT: 333 QTc: 347 Interpretive Statements SINUS RHYTHM CONSIDER INFERIOR INFARCT, AGE INDETERMINATE ABNORMAL ECG Compared to ECG 06/14/2024 08:21:33 NO SIGNIFICANT CHANGE Electronically Signed On 03-04-2025 07:58:28 CDT by Miguel Levi D.O.
[2025-03-03 17:03] VITALS: BP 155/103; PULSE 90; RESP 20; TEMP 36.6; O2SAT 99
--- NOTE | 2025-03-03 17:28 | ED.CHESTPAIN ---
HPI - Chest Pain General Chief Complaint: Dizziness Stated Complaint: Dizziness/Chest Pain Time Seen by Provider: 03/03/25 17:15 Source: patient and RN notes reviewed Mode of arrival: ambulatory Limitations: no limitations History of Present Illness HPI narrative: 49-year-old male patient presents to the [facility] complaining of chest pain for approximately 1-1.5 wks. Patient says it comes on randomly, lasts a couple minutes and comes and goes intermittently throughout the day. Patient to the happens a few times a day. Patient says he feels the pain in his left upper chest he says he can not describe how feels, but he says it hurts worse with certain movements. Patient said he felt some dizziness today that subsided rapidly. Patient has a history hypertension, patient stopped taking his blood pressure medications because he said his blood pressure was normal. Patient said he has been off it for a few months now. Patient denies any a other significant past medical history, no history of high cholesterol, no smoking history no diabetes, no other cardiac history. Patient denies any chest pain currently. Patient denies any chest pain exertion, jaw pain, left arm pain, nausea, vomiting, epigastric pain, diaphoresis, shortness of breath, fevers, eczema chills, cough, orthopnea, leg swelling, upper respiratory symptoms, or any other symptoms. Related Data Home Medications ?Medication ?Instructions ?Recorded ?Confirmed ?Last Taken ?Type No Home Medications 03/03/25 03/03/25 Unknown History Allergies Allergy/AdvReac Type Severity Reaction Status Date / Time Sulfa (Sulfonamide Allergy Mild Hives Verified 03/03/25 17:04 Antibiotics) Review of Systems Review of Systems: CONSTITUTIONAL: Denies fever, body aches, chills, or sweats. EYES: Denies visual changes, redness, or discharge. ENT: Denies rhinorrhea, congestion, sore throat, or otalgia. CARDIOVASCULAR: Positive for chest pain and dizziness. Denies chest pain with exertion, orthopnea, jaw pain, left arm pain, lightheadedness Palpitations, or edema. RESPIRATORY: Denies cough, difficulty breathing, wheezing, or dyspnea. GASTROINTESTINAL: Denies abdominal pain, nausea, vomiting, or diarrhea. GENITOURINARY: Denies dysuria or hematuria. SKIN: Denies rash or itching. MUSCULOSKELETAL: Denies back pain, joint pain, or myalgia. NEUROLOGIC: Denies headache, numbness, or weakness. PSYCHIATRIC: Denies anxiety or depression. All other systems reviewed are negative, except as documented in HPI. [facility] Past Medical History Medical History Adenomatous colon polyp Fatty liver disease, nonalcoholic Encounter for screening colonoscopy Epigastric pain Hypertension Surgical History Surgical History Hx laparoscopic cholecystectomy 06/17/24 1. Laparoscopic cholecystectomy with cholangiography, da Kaushik assisted 2. Interpretation of cholangiography Dr. Ding History of bilateral carpal tunnel release Family History Family History Grandparent Carcinoma of colon Other Hypertension Social History Social History Smoking status: Never smoker Alcohol intake: current Drinks per week: 10 Alcohol use details: 1-4 week Substance use: never Substance use type: does not use Do You Feel Safe in your Home?: Yes Lack of Transportation: No Lack of Food: Never True Current Housing: I Have Housing Concerned About Future Housing: No Difficulty Paying Gas/Electric Bills: No Difficulty Paying for Meds: No Currently Unemployed: No Education: High School Diploma/GED Difficulty w/ Childcare or Family Care: No Living arrangements: with family Spiritual care concerns: No Comments At the time of my signature, I reviewed and agree with the nursing past medical, surgical, social, and family history. There is no relevant family history pertinent to the patient complaint. Exam Narrative: GENERAL: This is a well-nourished, well-developed adult, in no apparent distress. They are non ill-appearing, nontoxic appearing. HEAD: normocephalic, atraumatic. EYES: Sclera clear/white. Conjunctiva normal. Vision is grossly intact. Extraocular movements intact. Pupils PERRLA EARS: External ears normal, Hearing grossly intact. NOSE: External nose normal THROAT: Mucous membranes moist, NECK: Neck supple, CARDIOVASCULAR: Regular rate and rhythm without murmurs, clicks, gallops, or rubs. Normal S1-S2. RESPIRATORY: Clear to auscultation. Breath sounds equal bilaterally. No wheezes, rales, or rhonchi. SKIN: warm, Dry, intact with no suspicious lesions or rash, good texture and turgor. NEURO: awake, alert, and oriented to person, place and time. There were no obvious focal neurologic abnormalities. EXTREMITIES: No joint tenderness, effusion, or edema noted. BACK: Nontender without deformity. Course Course Emergency Course: Portions of this record may have been created with voice recognition software Level of Care: Express Care Visit Vital Signs Vital signs: Vital Signs Temperature 97.9 F 03/03/25 17:03 Pulse Rate 90 03/03/25 17:03 Respiratory Rate 20 03/03/25 17:03 Blood Pressure 155/103 H 03/03/25 17:03 Pulse Oximetry 99 03/03/25 17:03 Oxygen Delivery Room Air 03/03/25 17:03 Temperature 97.9 F 03/03/25 17:03 Pulse Rate 90 03/03/25 17:03 Respiratory Rate 20 03/03/25 17:03 Blood Pressure 155/103 H 03/03/25 17:03 Pulse Oximetry 99 03/03/25 17:03 Oxygen Delivery Room Air 03/03/25 17:03 Reviewed MDM - Chest Pain MDM Narrative Medical decision making narrative: EKG is sinus rhythm without any ischemic findings. No ST elevation or depression, no dynamic changes. Chest pain appears atypical in presentation. Chest pain is not, with exertion, patient risk factor is a history of hypertension. Patient is obese otherwise no other risk factors noted. Patient is hypertensive today 155/103. Patient says he has a follow-up with PCP in next week. Advised patient talk to his PCP about starting is antihypertensive therapy again. Lung sounds are clear to auscultation equal bilaterally. [place] heat score 1. Low risk for CAD. Informed patient that the [facility] has limited resource to fully evaluate chest pain to rule out any other cardiac etiology or any other significant conditions. Patient verbalized understanding. Patient's vital signs hemodynamically stable, patient is resting comfortably in the room, nontoxic appearing, no apparent distress. Patient is any family cardiac history. Offered Patient ER transfer given his symptoms for further evaluation management he declined. Discussed strict ER precautions especially the chest pain returns, becomes constant, feels like a pressure in his chest, comes on with exertion, will not resolve, extreme diaphoresis or sweating, shortness of breath, difficulty breathing, jaw pain, left arm pain, nausea vomiting, epigastric pain, dizziness, lightheadedness or any serious concerns. Discussed physical exam findings. Advised supportive measures and signs/symptoms to go to the ER. Pt is appropriate for outpt treatment and f/u. Differential Diagnosis Differential diagnosis: Likely stable angina, atypical chest pain, st elevation myocardial infarction and other (Acute coronary syndrome, anxiety, musculoskeletal injury) ECG Data EKG #1: Attestation: I personally reviewed and interpreted this ECG as follows: ECG completion date: 03/03/25 ECG completion time: 17:01 Prior ECG tracings: not available for review EKG Interpretation: normal rate, sinus rhythm, no ectopy, no ST changes, normal QRS, normal QT and NL axis Critical Care Time Critical Care Time Critical Care Time: No Discharge Plan Discharge Clinical Impression: Chest pain Patient Disposition: Home Condition: Stable Instructions: Chest Pain (ED) Additional Instructions: Your EKG is a sinus rhythm today. Please follow-up with your PCP in 3-5 days. You may take Tylenol or ibuprofen as needed for pain. Follow instructions on the bottle. Her chest pain changes becomes constant, comes on with exertion, you becomes short of breath, breathing problems, become very sweaty or diaphoretic, nausea, vomiting, left arm pain, left jaw pain, dizziness, lightheadedness, or any serious concerns please go to the ER immediately. Patient Language: Citizen Of [place] Prescriptions: No Action No Home Medications Follow-up/Referrals: Prince,JONNA Nicolas [Primary Care Provider] Time of Disposition: 17:26
--- OUTSIDE RECORDS SUMMARY | 2025-03-03 17:57 | XMS_ITS | Clinical Summary ---
Author Organization [facility] Address [address] [place] [id number] Care Team Providers Care Automobile Service Writer Name Role Phone None, Provider MD Primary [...] 2:32 AM CDT Height 172.7 cm (5' 8) 08/26/2023 2:32 AM CDT Body Mass Index 34.27 08/26/2023 2:32 AM CDT Plan of Treatment Health Maintenance Due Date Last Done Comments Colorectal Cancer Screening Colonoscopy (10 Years) 1975 Annual Physical 1978 Hepatitis C 1993 DTaP, Tdap and Td Vaccines ( 1 - Tdap) 1994 Hepatitis B Vaccines (1 of 3 - 19+ 3-dose series) 1994 COVID-19 Vaccine (2024-2 6 season) 2025 02/10/2021, 01/13/2021 Influenza Adult (#1) 2025 02/06/2020 Hepatitis A Vaccines Aged Out No long er eligible based on patient's age to complete this topic Meningococcal B Vaccine Aged Out No l onger eligible based on patient's age to complete this topic Meningococcal Vaccine Aged Out No elton lux eligible based on patient's age to complete this topic Pneumococcal Vaccine: Pediatrics (0 to 5 Years) and At-Risk Patients (6 to 49 Years) Aged Out No longer eligible b ased on patient's age to complete this topic RSV Immunizations Under 20 Months Aged Out No longer eligible b ased on patient's age to complete this topic Insurance [facility] Care Teams Automobile Service Writer Relationship Specialty Start Date End Date None, Provider, PCP - General UNKNOWN PHYSICIAN SPECIALTY 08/26/23
== END 2025-03-03 17:32 | disposition home or self-care (01) ==
PROVIDERS: PCP Physician Assistant
DX: R07.9 Chest pain, unspecified (principal); I10 Essential (primary) hypertension; Z91.128 Patient's intentional underdosing of medication regimen for other reason; K76.0 Fatty (change of) liver, not elsewhere classified
CPT/HCPCS: 93005; 99213; G0463